=== PATIENT | male | born 1950 | race Caucasian/White ===

== ENCOUNTER 2019-04-22 10:13 | Inpatient (IN) | payer MEDICARE, OTHER, SELFPAY ==
[2019-04-15 10:02] VITALS: BMI 34.7
[2019-04-22] VITALS (21 sets, daily range): BP systolic 86–137; BP diastolic 49–73; PULSE 58–89; RESP 8–22; TEMP 36–37.1; O2SAT 91–100; BMI 33.8
--- NOTE | 2019-04-22 | DI.RAD.S_ITS ---
PROCEDURE: XR LUMBAR SPINE 2-3V INDICATIONS: L4-L5 TLIF TECHNIQUE: 2 views of the lumbar spine were acquired. COMPARISON: None. FINDINGS: Spot fluoroscopic intraoperative views demonstrating L4-L5 posterior spinal fixation hardware. Interbody cage graft. There is expected intraoperative alignment. IMPRESSION: Expected intraoperative alignment. Dictated by: Yazan Bolivar M.D. on 04/22/2019 at 16:06 Approved by: Yazan Bolivar M.D. on 04/22/2019 at 16:07
[2019-04-22] MEDS: LACTATED RINGERS 1,000 ML 42 ML IV ×2 (10:54→14:47)
--- NOTE | 2019-04-22 12:42 | PM.PREOP ---
Pre-operative Note Interval Note History & Physical reviewed/Exam performed by Physician: Yes Changes to H&P: No
[2019-04-22] MEDS: CEFAZOLIN 2 GM/100 ML FROZ.PIGGY IV ×2 (13:22→21:43)
--- NOTE | 2019-04-22 13:54 | SUR.OPER ---
Prone on spine table, head in foam head support, padded chest and pelvic supports, gel pad at knees, lower legs supported by pillows; nipples, genitalia and toes free of pressure, arms secured on foam padded arm boards at <90 degrees abduction. Tape over blanket at thigh secured to table.
[2019-04-22] MEDS: BUPIVACAINE LIPOSOME 266 MG/20 ML VIAL INJ (14:08)
[2019-04-22] MEDS: BUPIVACAINE 0.25% W/ EPI 30 ML VIAL INJ (14:08)
--- NOTE | 2019-04-22 16:01 | P.OP_ITS ---
Operative Date/Time/Diagnoses Date of procedure: 04/22/19 Time of procedure: 13:27 Pre-op diagnosis: 1. L3-4, L4-5 spinal stenosis 2. L4-5 spondylolisthesis Post-op diagnosis: same Procedure & Clinicians Procedure: 1. L4-5 Postero-lateral and posterior interbody fusion 2. L4-5 interbody cage placement. 3. L4-5 decompressive laminectomy with bilateral facetecomies 4. L4-5 Posterior non-segmental instrumentation 5. L3-4 hemilaminectomy 6. Merrick of bone marrow from iliac crest 7. Utilization of microsurgical technique and operating microscope Same procedure as scheduled: Yes Indications: Patient has been having chronic back pain and worsening lumbar radiculopathy. Patient failed multiple conservative management with worsening pain weakness and numbness in her lower extremity. Patient has been having difficulty performing activity of daily living. After discussing risks benefits of treatment options, patient elected proceed with surgery. Surgeon: Sadaf Anguiano [employer] Manager: Naty Urias'Brien Click Yes if Unassisted: No Anesthesia Type: General Operative Notes Closure Type: primary Specimen(s): none sent Prosthetic devices, grafts, tissues, transplants, or devices: Globus revolve screws, Rise cage Estimated Blood Loss (mL): 50 Blood products transfused: none Procedure in detail: Patient was seen in the preoperative area. Risks and benefits of the surgery was discussed with the patient. Informed consent was obtained from the patient and placed in the chart. Surgical site was marked. Patient was taken to the operative room. General anesthesia was administered. Prophylactic antibiotic was given to the patient less than 30 min before the incision was made. Patient was placed into a prone position on the Tobias table. Patient's back was then prepped and draped in the sterile fashion. Time- out was performed at this time. Using AP and lateral C-arm imaging the interval between L3-4 L4-5 was identified and marked on patient's back. A 2 inch incision 2 in from midline was made on the left side first. The fascia was incised in line with skin incision. Globus MARS retractors was placed inside the incision and docked onto the L4 lamina. Using microsurgical technique and operating microscope, a L4-5 laminectomy and L4-5 facetectomy was performed using a Kerrison rongeur. Patient was found to have severe neural foramen stenosis which required total facetectomy. The L4-5 level was grossly unstable in addition to the already present spondylolisthesis and required effusion at same time. The disc space at L4-5 was identified. And a total diskectomy was performed at L4-5 level. The endplates were decorticated using a rasp and shaver. The total diskectomy and decortication was performed at L4-5 level in order to to accomplish a L4-5 fusion. The local bone from the laminectomy and facetectomy was saved for local bone grafting. After the total diskectomy and decortication was completed, Bio4 bone graft material was combined with local bone that was harvested earlier. At this time, a separate skin is incision was made over the iliac crest. A Jamshidi needle was inserted into the iliac crest through a separate skin incision. 5 cc of bone marrow aspiration was obtained through the separate skin incision using a Jamshidi needle from the iliac crest. The bone marrow aspiration was combined with local bone and the Bio4 bone grafting material. The bone grafting material was placed into the L4-5 interbody space along with a expandable cage. The cage was expanded to its maximum height using the torque limiting screwdriver. At this time the MARS retractor was redirected over the L3 lamina. Using microsurgical technique and operating microscope, a L3-4 heminectomy was performed using the Kerrison rongeur. The ligamentum flavum was also resected at the side of the hemilaminectomy for further decompression of the epidural space. Patient was found have significant epidural stenosis with lateral recess stenosis due to the hypertrophied ligamentum flavum which was fully decompressed after the hemilaminectomy was completed. At this time a mirror image incision was made on the right side. The fascia was incised in line with the skin incision. Globus MARS retractor was inserted and docked onto the L4-5 posterolateral gutter. Using the power drill, posterior- lateral decortication was performed at L4-5 level until bleeding cortical bone was identified. The remaining bone grafting material was placed into the L4-5 posterior lateral gutter he order to accomplish posterolateral fusion at the L4- 5 level. Using the double C-arm technique, pedicle screws were placed into the L4 and L5 pedicles bilaterally. This was done by placing the Jamshidi needle into the pedicles, then placing the guidewires over the Jamshidi needle, and finally placing the cannulated screws over the guidewires bilaterally. After the pedicle screws were placed, 2 titanium rods was locked into the heads of the pedicle screws using locking caps and torque limiting screwdriver. Threaded reducers were used to reduce the spondylolisthesis at L4-5 level which was accomplished without any difficulty. After all the hardware was placed, and confirmed with AP and lateral C-arm imaging, the wound was then irrigated with sterile normal saline and packed with Ray-Chloe gauze for 3 min to accomplish hemostasis. After the gauze was removed the deep fascia was closed with #1 Vicryl suture. The subcutaneous layer was closed with 2-0 Vicryl. The skin was closed with skin melania. Patient tolerated the procedure well. There were no complications. Complications: none Post-operative Condition: stable Disposition: PACU Plan for aftercare: Admit to inpatient hospital
[2019-04-22] MEDS: fentaNYL 100 MCG/2 ML INJ IV ×2 (16:10→16:22)
[2019-04-22] MEDS: hydrOXYzine 50 MG/ML INJ 12.5 MG IM (16:37)
[2019-04-22] MEDS: HYDROMORPHONE 2 MG INJ IV ×6 (16:37→17:26)
--- NOTE | 2019-04-22 17:11 | SUR.PHASEI ---
ASSUMED CARE OF PT AT THIS TIME. BEDSIDE REPORT RECEIVED FROM SOFIYA FERGUSON. DRSG OBSERVED TO BE C/D/I. IV SITE CLEAR AND INFUSING WITHOUT DIFFICULTLY. PT ALERT AND TALKING TO RN AT BEDSIDE.
--- NOTE | 2019-04-22 18:06 | SUR.PHASEI ---
PT TRANSFERRED TO ACUTE CARE FLOOR IN STABLE CONDITION, VSS. PT GIRLFRIEND AT BEDSIDE. BEDSIDE REPORT GIVEN TO SOFIYA HOLDEN AT THAT TIME. DRSG OBSERVED TO BE C/D/I. TRANSFERRED CARE OF PT TO SOFIYA HOLDEN AT THAT TIME IN STABLE CONDITION, VSS.
[2019-04-22] MEDS: OXYCODONE IR 5 MG TABLET 10 MG PO ×2 (18:52→21:47)
[2019-04-22] MEDS: ACETAMINOPHEN 325 MG TABLET 650 MG PO (18:52)
[2019-04-22] MEDS: SODIUM CHLORIDE 0.9% 1,000 ML 100 ML IV (18:52)
[2019-04-22] MEDS: SIMVASTATIN 10 MG TABLET PO (21:44)
[2019-04-22] MEDS: GABAPENTIN 300 MG CAPSULE PO (21:44)
--- NOTE | 2019-04-22 22:49 | PC.NURSE ---
Admit note: Renan transfered from PACU to rm 212 at approx 1805, awake, Ox3 and situation. VS stable. Reported need to void, able to use urinal while side lying right side. Back drsg CDI, ice pack in place. 2L O2 sat 93-94%, on RA desats to 85-88% By 1851 started to report back pain increasing to 5 or 6, medicated with oxycodone & tylenol with good results, last checked he reported pain 2/, requesting to stay on pain med schedule to avoid breakthru pain. We have assisted him to reposition every 1-2 hours, pt calling appropriately when uncomfortable or needs assistance. Logrolling technique instructed, needs reminders as can be a bit impulsive. Good CMS, wearing bilateral foot SCD's. Voiding q30 min - 1 hour, reports frequency normal for him, denies diabetes & said they ruled that out. Takes own med to help urination and flow, does not have med here but called to bring in the morning so pharmacy can ID. Has eaten 1/2 sandwich & snacks, denies nausea, tolerating PO intake. Fall precautions in place, pt instructed to call nurse for any needs. Alarm active for safety.
--- NOTE | 2019-04-22 23:58 | PC.NURSE ---
Addendum entered by Karen Pressley R.N. 04/23/19 05:05: Remains on oxygen as when asleep O2 sat only at 93% with oxygen at 2L/min. States pain is only 1-2/10 this morning and declines offer of pain medication or ice pack. Assisted to use urinal. BP low but is asymptomatic; will continue with IV fluid at this time. Addendum entered by Karen Pressley R.N. 04/23/19 01:54: Awake and states pain is still 2-3/10 but requests and medicated with Tylenol and repositioned himself onto back. Original Note: Patient is alert and oriented. Breath sounds CTA. On oxygen at 2L/min per NC with sat of 93%; on continuous oximetry and will attempt to titrate oxygen during the night. HRR. Denies nausea. BT present but denies flatus as yet. Voiding per urinal and does have chronic frequency but denies dysuria, or urgency. Able to turn himself in bed. Dressing to back is CDI. States pain is tolerable at 2-3/10 and declines offer of ice pack. CMS is intact bilaterally. Wearing foot SCD's. Fall risk score is moderate; bed alarm is activated.
[2019-04-23] VITALS (9 sets, daily range): BP systolic 91–114; BP diastolic 49–65; PULSE 56–78; RESP 16–18; TEMP 36.8–37.2; O2SAT 93–99
[2019-04-23] MEDS: ACETAMINOPHEN 325 MG TABLET 650 MG PO ×3 (01:50→18:17)
[2019-04-23] MEDS: SODIUM CHLORIDE 0.9% 1,000 ML 100 ML IV (04:39)
[2019-04-23] MEDS: CEFAZOLIN 2 GM/100 ML FROZ.PIGGY IV (04:47)
--- NOTE | 2019-04-23 07:50 | PM.DS.1 ---
History of Present Illness History of Present Illness Chief complaint: [id number] Discharge Providers Provider Date of admission: 04/22/19 10:13 Consults: 04/22/19 18:28 Consult to Occupational Therapy Evaluate & Treat Comment: Physician Instructions: Evaluate and treat Consult to Physical Therapy Evaluate & Treat Comment: Physician Instructions: Evaluate and Treat Discharge provider: Naty Camacho PA-C Exam Vital Signs (past 8 hours): - 04/23/19 04:40 Temperature 98.2 F Pulse Rate 65 Respiratory Rate 16 Blood Pressure 95/49 L Pulse Oximetry 98 Oxygen Delivery Method Nasal Cannula Oxygen Flow Rate 2 Discharge Plan Discharge Plan Patient Disposition: Home Discharge Med Rec/Prescriptions Prescriptions: No Action ibuprofen 800 mg Tablet 800 mg PO TID PRN (Reason: Pain) RF: 0 diclofenac sodium 100 mg Tablet Extended Release 24 Hr 100 mg PO DAILY RF: 0 simvastatin 10 mg Tablet 10 mg PO BEDTIME RF: 0 acyclovir 400 mg Tablet 400 mg PO DAILY RF: 0 gabapentin 300 mg Capsule 300 mg PO BID RF: 0 cyclobenzaprine 5 mg Tablet 5 mg PO TID PRN (Reason: Pain) RF: 0 alfuzosin [Uroxatral] 10 mg Tablet Extended Release 24 Hr 20 mg PO BEDTIME RF: 0 Follow up/Referrals: Sadaf Anguiano MD [Physician] - Provider Discharge Instructions Cold/Heat Therapy: as needed Skin/Wound/Dressing Care Report to your healthcare provider any signs of infection, such as:: chills, fever and increased pain Visit Report/Discharge Packet Instructions: DI for Transforaminal Lumbar Interbody Fusion
[2019-04-23 08:55] LABS: Hematocrit 36.9 % (41-53); Hemoglobin 12.9 g/dL (13.5-17.5); Mean Corpuscular HGB Conc 34.8 % (30-36); Mean Corpuscular Volume 97.7 fL (80-100); Platelet Count 202 X10^3/uL (150-400); Red Blood Cell Count 3.78 X10^6/uL (4.5-5.9); Red Cell Distribution Width 13.9 % (11.6-14.8); White Blood Cell Count 12.4 X10^3/uL (4.5-11.0)
--- NOTE | 2019-04-23 10:06 | OT.IP.EVAL ---
Current Diagnoses Spondylolisthesis, lumbar region (04/22/19) Spinal stenosis, lumbar region with neurogenic claudication (04/22/19) Surgery Performed Operation Date: 04/22/19 12:15 Actual Procedures p L3-4 hemilaminectomy, L4-5 TLIF w/ posterior instrumentation(Not Applicable) - Sadaf Anguiano MD Past Medical History (Last Updated 04/15/19 @ 10:20 by Phylicia Smith, SOFIYA) BPH (benign prostatic hyperplasia) (Acute) History of deviated nasal septum (Acute ~2013) HLD (hyperlipidemia) (Acute) Incontinence of feces with fecal urgency (Acute) Sciatica (Acute) Urinary urgency (Acute) Surgical History (Last Updated 04/15/19 @ 10:20 by Phylicia Smith RN) H/O vasectomy (Acute) H/O wrist surgery (Acute) History of ankle surgery (Acute) History of arthroscopy of both knees (Acute) History of bilateral cataract extraction (Acute) Hx of foot surgery (Acute) Hx of hernia repair (Acute) Hx of tonsillectomy (Acute) Occupational Therapy Inpatient Evaluation/Re-Eval M1 PT/OT-IP Prior Functional Status Start: 04/23/19 12:22 Freq: NEEDED Status: Active Protocol: Document 04/23/19 10:06 [facility] (Rec: 04/23/19 12:44 [facility] [id number]) Medical Review Prior Functional Status Medical History Reviewed Yes Diet/Fluid Consistency Regular Communication Able to make needs known Mobility and Gait Pt was independent with all functional mobility Activities of Daily Living and IADL's Independent Prior Functional Level (Other details) Pt with high prior level of activity - dances (square, ballroom) 2-3x/week. Social History Household Members none Living Arrangements House Number of Floors (Floors) One Floor Number of Stairs To Enter/Railing? 2 DRE. Stairs are deep enough to allow FWW Home Environment Standard Height Toilet,Tub/ Shower Home Equipment Front Wheel Walker,Four Wheel Walker,Quad Cane,Straight Cane ,Bedside Commode,Shower Seat with Backrest,Grab Bars In Shower Employment Status Self-Employed Additional Social History Comment Pt lives alone but his girlfriend plans to live with him for the next month to provide assistance. She is retired and will be available 02/01. 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 At discharge, pt will spend a few days at his girlfriend's house. That house has 2 DRE with right railing. The stairs are wide enough that pt can use the railing and a quad cane one the left side. The home is all one level. M2 OT-IP Current Condition Start: 04/23/19 12:22 Freq: Status: Active Protocol: Document 04/23/19 10:06 [facility] (Rec: 04/23/19 12:44 [facility] [id number]) Occupational Therapy Current Condition Current Condition Evaluation Date 04/23/19 Treatment Diagnosis S/P L3-4 hemilami, L4-5 TLIF with post instruct. Diagnosis Onset Date 04/22/19 Post Operative Precautions Lumbar Precautions Log Roll,No Twisting,Limit Bending,Lifting Restriction of 10 lbs,Gait Belt above Incisional Area Weight Bearing Status Weight Bearing Status Weight Bear as Tolerated M3 OT- IP Subjective and Pain Start: 04/23/19 12:22 Freq: Status: Active Protocol: Document 04/23/19 10:06 [facility] (Rec: 04/23/19 12:44 [facility] [id number]) OT- Subjective Occupational Therapy Visit Type Type Initial Evaluation Visit Start Time 10:06 Visit Stop Time 10:51 Total Visit Minutes 45 Occupational Therapy Visit Comments Patient Comments Pt willing to get up. Patient/Caregiver Goals To go home when medically ready. OT Pain Assessment Pain When Pain Assessed During Mobility Pain Present Pain Present Pain Reported Location lower back Intensity 3 Scale Used Numeric (1 - 10) M4 OT- IP ADL's Start: 04/23/19 12:22 Freq: Status: Active Protocol: Document 04/23/19 10:06 [facility] (Rec: 04/23/19 12:44 [facility] [id number]) OT ADL-Grooming Comments OT Grooming Comments Pt states already completed. Educated to bend at hips or just spit into a cup for brushing his teeth. OT ADL-Dressing General Eval Lower Body Dressing Ability Moderate Assistance Areas Needing Assistance Socks Comments OT Dressing Comments Pt prior crosses his legs over to do LB dressing needs, at this time causes too much discomfort and therefore educated and had pt try to use mainspring strip gauger and sock aid to zac/ doff socks and able to do with good safety and understanding . Sock aid issued. OT ADL-Toileting Comments OT Toileting Comments Pt using urinal now. Pt states current master bathroom is being remodeled and other bathroom 50 ft away. Pt did clarify has a BSC if needed or could use a urinal at night. Educated may be easier to stand for pericare needs. OT ADL-Bathing Comments OT Bathing Comments To completed. M5 OT- IP IADL's Start: 04/23/19 12:22 Freq: Status: Active Protocol: Document 04/23/19 10:06 [facility] (Rec: 04/23/19 12:44 [facility] [id number]) OT-Instrumental Activities of Daily Living Home Safety Awareness Awareness of Need for Assistance at Home Good Awareness Ability to Problem Solve Emergency Able to Problem Solve Situations Medication Management Medication Management No Deficits Identified Money Management Money Management No Deficits Identified Meal Preparation Meal Preparation Caregiver Provides Assist Polymerization Oven Operator Polymerization Oven Operator Caregiver Provides Assist M6 OT- IP Functional Cognition Start: 04/23/19 12:22 Freq: Status: Active Protocol: Document 04/23/19 10:06 [facility] (Rec: 04/23/19 12:44 [facility] [id number]) Cognitive Factors Limiting Selfcare Function Cognitive Ability Level of Alertness Alert Patient Orientation Name,Age,Birthday,Month,Date, Year,Day of Week,Place, Situation Attention Span Ability Capable of Focused Attention, Capable of Sustained Attention Ability to Follow Commands Able to Follow Multi-Step Commands Safety Awareness Decreased Ability to Apply Precautions Cognitive Comments Cognitive Assessment Comments Pt able to follow 3 steps commands and appears to be intact cognitively at this time. Pt able to state all back precautions. Pt needing occasional vc to incorporate back precautions for mobility needs. OT- Vision and Hearing OT- Hearing Assessment OT- Hearing Assessment WFL OT- Vision Assessment Visual Acuity WFL Visual Attentiveness WFL M7 OT- IP Mobility and Balance Start: 04/23/19 12:22 Freq: Status: Active Protocol: Document 04/23/19 10:06 [facility] (Rec: 04/23/19 12:44 [facility] [id number]) OT- Bed Mobility Assessment Rolling Type of Rolling Roll to Left Level of Assistance Standby Assistance Supine to Sit Supine to Sit Assist Minimal Assistance Scooting Scooting to Edge of Bed Standby Assistance OT-Transfer Assessment Sit to and From Stand Sit to and from Stand Minimal Assistance,Moderate Assistance Transfers Transfer Ability Minimal Assistance Technique Transfer Destination Bed,Chair Transfer Technique Stand Step Pivot Devices Transfer Assistive Devices Gait Belt,Front Wheeled Walker Comments Mobility Comments YASH to help push up to get trunk upright. Pt needing MODA to stand as having trouble to straighten his legs out as having pain and educated to be mindful of the pain and not stop 1/2 way while trying to come to stand. Pt second time improved to YASH to stand. [facility] Y[facility]. Pt taken off O2 and after transfer O2 on RA 99% and nursing notified and pt no longer needing to use O2 at this time per nursing. OT- Balance Assessment Sitting Balance and Reactions Static Sitting Balance Ability Normal Dynamic Sitting Balance Ability Normal Standing Balance and Reactions Static Standing Balance Ability Fair M8 OT- IP Objective Assessments Start: 04/23/19 12:22 Freq: Status: Active Protocol: Document 04/23/19 10:06 [facility] (Rec: 04/23/19 12:44 [facility] [id number]) OT Gross Range of Motion Upper Extremity Range of Motion Assessment Within Functional Limits OT Strength Upper Extremity Strength Assessment Within Functional Limits OT-Muscle Tone Assessment Muscle Tone WNL Yes M9 OT- IP Assessment and Plan Start: 04/23/19 12:22 Freq: Status: Active Protocol: Document 04/23/19 10:06 [facility] (Rec: 04/23/19 12:44 [facility] [id number]) OT Summary Assessment and Plan Potential Rehabilitation Potential Excellent Analytic Complexity at Evaluation Low Summary OT Impairments Pain,Functional Mobility, Grooming,Dressing,Toileting, Bathing,Toilet Transfers, Shower Transfers Progress Towards Goals Progressing Toward Goals Assessment Summary Pt low complexity and main barrier are steps, pain, and now needing assistance for mobility and ADl needs. Pt doing well and continue to work with OT while here for incorporation of back precautions for ADl and functional mobility needs. Pt looking to go home with girlfriend to assist when medically stable. Goals Grooming Goal Independent Dressing Goal Independent Toileting Goal Independent Bathing Goal Standby Assistance Toilet Transfer Goal Independent Shower Transfer Goal Contact Guard Assistance Patient/Caregiver Education Goal Demonstrate Post-Op Precautions,Caregiver Independent Assisting Patient OT-Other Goals Grooming goal while standing. Days to Meet Goals 5 Frequency of Treatment Frequency Of Treatment Once a Day Treatment Plan OT Treatment Plan ADL Training,Functional Mobility,Patient/Family Education,Discharge Planning Other Treatment Recommendations and Next Incorporation of back Treatment Focus precautions for ADl needs, shower Discharge Recommendations OT Discharge Recommendations Home with Assistance
[2019-04-23] MEDS: ACYCLOVIR 400 MG TABLET PO (10:29)
[2019-04-23] MEDS: GABAPENTIN 300 MG CAPSULE PO ×2 (10:30→20:21)
[2019-04-23] MEDS: HYDROCODONE/ACET 5/325 TABLET 2 TAB PO ×3 (10:30→23:35)
--- NOTE | 2019-04-23 10:55 | P.PN_ITS ---
Subjective Subjective Date Patient Seen: 04/23/19 Time Patient Seen: 10:55 Interval history: POD #1 s/p L4-[address] Anguiano. Patient's pain was well- controlled last night with oxycodone. He notes significant relief of right leg symptoms and surgery. He is requesting something for pain that is less strength than oxycodone. Denies chest pain or shortness breath. He did require oxygen last night. On room air this morning. Patient is voiding without difficulty or assistance. Exam Vital Signs (past 8 hours): - 04/23/19 04:40 04/23/19 07:54 Temperature 98.2 F 98.3 F Pulse Rate 65 61 Respiratory Rate 16 18 Blood Pressure 95/49 L 91/50 L Pulse Oximetry 98 98 Oxygen Delivery Method Nasal Cannula Oxygen Flow Rate 2 Narrative Exam Narrative: Patient sitting bedside chair in no acute distress. Alert orient x3. Calves are soft, depressible, nontender bilaterally. Pulses are symmetrical. Sensation intact to light touch in her bilateral lower extremities. He is able to actively dorsiflex plantar flex. Dressing on back is CDI. Objective Labs Result Diagrams: 04/23/19 08:15 Labs: Laboratory Results - last 24 hr 04/23/19 08:15 WBC 12.4 H RBC 3.78 L Hgb 12.9 L Hct 36.9 L MCV 97.7 MCH 34.0 MCHC 34.8 RDW 13.9 Plt Count 202 Assessment & Plan Post-op Postoperative Procedures: Procedures Operation Date: 04/22/19 12:15 Actual Procedures Side Surgeon p L3-4 hemilaminectomy, L4-5 TLIF w/ posterior instrumentation Not Applicable Sadaf Anguiano MD Patient will continue work with physical therapy today. No excessive bending, lifting, or twisting. Patient can take [place] 5/325 for pain control. Oxycodone for significant pain. This patient is mobilizing safely with adequate pain control he will be able to discharge home likely tomorrow.
--- NOTE | 2019-04-23 11:02 | PC.NURSE ---
Shift summary: Alert and oriented X3. Reports low back pain 09/19. Dressing to mid-low back C/D/I. Medicated with Vicodin and Tylenol per -aug. Denies paresthesias. Voiding without issue. Up to chair with OT. Reported feeling a bit lightheaded when he stood, vitals stable, resolved once sitting. IV fluids left running for now, encouraged PO fluid intake. Lungs CTA, HRR. Able to make needs known and calls appropriately. Light and belongings within reach, chair alarm on.
--- NOTE | 2019-04-23 12:19 | PT.IIE ---
Current Diagnoses Spondylolisthesis, lumbar region (04/22/19) Spinal stenosis, lumbar region with neurogenic claudication (04/22/19) Surgery Performed Operation Date: 04/22/19 12:15 Actual Procedures p L3-4 hemilaminectomy, L4-5 TLIF w/ posterior instrumentation(Not Applicable) - Sadaf Anguiano MD Surgical History (Last Updated 04/15/19 @ 10:20 by Phylicia Smith RN) H/O vasectomy (Acute) H/O wrist surgery (Acute) History of ankle surgery (Acute) History of arthroscopy of both knees (Acute) History of bilateral cataract extraction (Acute) Hx of foot surgery (Acute) Hx of hernia repair (Acute) Hx of tonsillectomy (Acute) Medical History (Last Updated 04/15/19 @ 10:20 by Phylicia Smith RN) BPH (benign prostatic hyperplasia) (Acute) History of deviated nasal septum (Acute ~2013) HLD (hyperlipidemia) (Acute) Incontinence of feces with fecal urgency (Acute) Sciatica (Acute) Urinary urgency (Acute) Physical Therapy Inpatient Evaluation/Re-Eval M1 PT/OT-IP Prior Functional Status Start: 04/23/19 10:16 Freq: NEEDED Status: Active Protocol: Document 04/23/19 11:59 AW (Rec: 04/23/19 12:19 AW [id number]) Medical Review Prior Functional Status Medical History Reviewed Yes Diet/Fluid Consistency Regular Communication Able to make needs known Mobility and Gait Pt was independent with all functional mobility Activities of Daily Living and IADL's Independent Prior Functional Level (Other details) Pt with high prior level of activity - dances (square, ballroom) 2-3x/week. Social History Household Members none Living Arrangements House Number of Floors (Floors) One Floor Number of Stairs To Enter/Railing? 2 DRE. Stairs are deep enough to allow FWW Home Environment Standard Height Toilet,Tub/ Shower Home Equipment Front Wheel Walker,Four Wheel Walker,Quad Cane,Straight Cane ,Bedside Commode,Shower Seat with Backrest,Grab Bars In Shower Employment Status Self-Employed Additional Social History Comment Pt lives alone but his girlfriend plans to live with him for the next month to provide assistance. She is retired and will be available 02/01. 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 At discharge, pt will spend a few days at his girlfriend's house. That house has 2 DRE with right railing. The stairs are wide enough that pt can use the railing and a quad cane one the left side. The home is all one level. M2 PT-IP Current Condition Start: 04/23/19 10:16 Freq: NEEDED Status: Active Protocol: Document 04/23/19 11:59 AW (Rec: 04/23/19 12:19 AW [id number]) Physical Therapy Current Condition Current Condition Evaluation Date 04/23/19 Treatment Diagnosis L3-4 L4-5 TLIF, impaired mobility Precautions Lumbar Precautions Log Roll,No Twisting,Limit Bending,Lifting Restriction of 10 lbs,Gait Belt above Incisional Area Weight Bearing Status Weight Bearing Status Full Weight Bearing M3 PT-IP Subjective Start: 04/23/19 10:16 Freq: NEEDED Status: Active Protocol: Document 04/23/19 11:59 AW (Rec: 04/23/19 12:19 AW [id number]) Subjective Physical Therapy Visit Type Type Initial Evaluation Visit Start Time 11:00 Visit Stop Time 11:20 Total Visit Minutes 20 Number of DISC PAD GRINDER Visits 0 Physical Therapy Visit Comments Patient Comments Pt willing to mobilize with PT Patient Goals Pt hopes to discharge to his girlfriend's house. She will be available and able to assist. Therapy Pain Assessment Pain When Pain Assessed During Mobility Pain Present Pain Present Pain Reported Location lower back Intensity 3 Scale Used 3/10 at rest; unchanged with mobility Pain Management Techniques Apply Cold,Re-positioning, Timing of Activity with Medications M4 PT-IP Mobility and Gait Start: 04/23/19 10:16 Freq: NEEDED Status: Active Protocol: Document 04/23/19 11:59 AW (Rec: 04/23/19 12:19 AW [id number]) PT-Transfer Assessment Sit to and From Stand Sit to and from Stand 1 Person Assistance,Use of Upper Extremities Equipment Transfer Assistive Device Gait Belt,Front Wheeled Walker Orthotic/Prosthetic Devices or Brace: No Transfers Transfer Destination Chair Transfer Technique pt ambulated using FWW Transfer Ability Level of Assist Minimal Assistance,1 Person Assistance,Use of Upper Extremities Comments Mobility Comments Pt found sitting up in chair after OT eval, declining bed mobility. He required min assist x 1 for sit<>stand using FWW. Gait Assessment Gait Gait Assistance Required: Contact Guard Assist Distance (Feet) 120 Able to Maintain Weight Bearing Status Yes During Gait Assistive Devices Assistive Device Gait Belt,Front Wheeled Walker Orthotic/Prosthetic Devices or Brace: No Gait Deviations General Gait Pattern Antalgic,Decreased Stride Length,Decreased Feet Clearance,Flexed Trunk Factors Limiting Gait Function Factors Limiting Gait Function Decreased Activity Tolerance, Pain Comments Gait Comments Pt ambulated 120 feet using FWW CGA, requiring verbal cues to avoid twisting, looking over his shoulder. Stair Climbing Assessment Evaluation Level of Assist On Stairs Standby Assistance Devices Stair Climbing Assistive Devices Left Railing,Right Railing Technique/Endurance Stair Climbing Direction Ascend and Descend Stair Climbing Technique Step to Step Number of Steps Climbed 3 Query Text: Stair Climbing Set # Repetitions (reps) 2 Comments Stair Climbing Comments Pt required no more than SBA for stair navigation using both rails. PT-Balance Assessment Sitting Balance and Reactions Static Sitting Balance Ability Normal Dynamic Sitting Balance Ability Normal Standing Balance and Reactions Static Standing Balance Ability Good Dynamic Standing Balance Ability Good Device Used FWW M5 PT-IP Objective Assessments Start: 04/23/19 10:16 Freq: NEEDED Status: Active Protocol: Document 04/23/19 11:59 AW (Rec: 04/23/19 12:19 AW [id number]) Orientation Orientation/Cognition Level of Alertness Alert Orientation Name,Day of Week,Place, Situation Language Function Ability No Deficits Noted Safety Awareness Understands Safety Issues Memory Description No Deficits Noted Gross Range of Motion Upper Extremity ROM Assessment Within Functional Limits Lower Extremity ROM Assessment Within Functional Limits Strength Upper Extremity Strength Assessment Within Functional Limits Lower Extremity Strength Assessment Within Functional Limits Comments Strength Comments BUE and BLE grossly 5/5 Coordination Assessment Gross Coordination Gross Coordination WNL Sensation Assessment Sensation Gross Sensation WNL M6 PT-IP Treatment Start: 04/23/19 10:16 Freq: NEEDED Status: Active Protocol: Document 04/23/19 11:59 AW (Rec: 04/23/19 12:19 AW [id number]) Physical Therapy Treatment Education Education Provided Precautions,Weight Bearing Status,Post-Op Packet,Safety Other Treatments Other Treatment Performed Reviewed PT plan of care, spinal precautions, weightbearing status, safe use of FWW, and stair navigation. M7 PT-IP Assessment and Plan Start: 04/23/19 10:16 Freq: NEEDED Status: Active Protocol: Document 04/23/19 11:59 AW (Rec: 04/23/19 12:19 AW [id number]) PT Summary Assessment and Plan Potential Rehabilitation Potential Excellent Status of Condition at Evaluation Evolving Summary Impairments Pain,Bed Mobility,Transfers, Gait,Activity Tolerance Assessment Summary Pt is an active 68 yo man seen for PT eval on POD1 following TLIF. PLOF: Pt was independent in all regards. CLOF: Pt required min assist for sit to stand and SBA for all other mobilities including stairs. Anticipate pt meeting functional goals of this plan of care with safe discharge to home or girlfriend's home with SO assist and outpatient PT. Goals Bed Mobility Goal Independent Transfer Goal Standby Assistance,Front Wheeled Walker Gait Goal Independent,Front Wheel Walker Gait Distance 300 Other Goals up/down 2 steps with R railing and quad cane left side SBA Days to Meet Goals 1 Frequency of Treatment Frequency Of Treatment Twice a Day Treatment Plan Physical Therapy Treatment Plan Bed Mobility Training,Transfer Training,Gait Training, Therapeutic Exercise,Balance Retraining,Post Op Education, Discharge Planning,Hot or Cold Pack,Neuromuscular Re-ed, Coordination Retraining,Manual Therapy Other Recommendations and Next Treatment stair training with quad cane Focus Recommendations To Nursing Amount of Assist Needed Standby Assistance,1 Person Assist Discharge Recommendations PT Discharge Recommendations Home with Assistance, Outpatient PT
--- NOTE | 2019-04-23 13:30 | PT.IPTN ---
Current Diagnoses Spondylolisthesis, lumbar region (04/22/19) Spinal stenosis, lumbar region with neurogenic claudication (04/22/19) Surgery Performed Operation Date: 04/22/19 12:15 Actual Procedures p L3-4 hemilaminectomy, L4-5 TLIF w/ posterior instrumentation(Not Applicable) - Sadaf Anguiano MD Physical Therapy Treatment Note M2 PT-IP Current Condition Start: 04/23/19 10:16 Freq: NEEDED Status: Active Protocol: Document 04/23/19 11:59 AW (Rec: 04/23/19 12:19 AW [id number]) Physical Therapy Current Condition Current Condition Evaluation Date 04/23/19 Treatment Diagnosis L3-4 L4-5 TLIF, impaired mobility Precautions Lumbar Precautions Log Roll,No Twisting,Limit Bending,Lifting Restriction of 10 lbs,Gait Belt above Incisional Area Weight Bearing Status Weight Bearing Status Full Weight Bearing M3 PT-IP Subjective Start: 04/23/19 10:16 Freq: NEEDED Status: Active Protocol: Document 04/23/19 13:04 CLB (Rec: 04/23/19 13:43 CLB [email or web address]) Subjective Physical Therapy Visit Type Type Treatment Note Visit Start Time 13:04 Visit Stop Time 13:30 Total Visit Minutes 26 Number of PARTS INTERPRETER Visits 1 Physical Therapy Visit Comments Patient Comments Pt willing to mobilize with PT Therapy Pain Assessment Pain When Pain Assessed During Mobility Pain Present Pain Present Pain Reported Location lower back Intensity 3 Scale Used Numeric (1 - 10) Pain Management Techniques Apply Cold,Re-positioning, Timing of Activity with Medications M4 PT-IP Mobility and Gait Start: 04/23/19 10:16 Freq: NEEDED Status: Active Protocol: Document 04/23/19 13:04 CLB (Rec: 04/23/19 13:43 CLB [id number]) PT-Transfer Assessment Sit to and From Stand Sit to and from Stand Contact Guard Assistance Equipment Transfer Assistive Device Gait Belt,Front Wheeled Walker Orthotic/Prosthetic Devices or Brace: No Transfers Transfer Destination Bed,Chair Transfer Technique pt ambulated using FWW Transfer Ability Level of Assist Contact Guard Assistance,1 Person Assistance,Use of Upper Extremities Comments Mobility Comments Pt in chair willing to ambulate. After ambulation pt performed reverse log roll with cues for sequencing and then log roll out of bed SBA. Pt required cues for hand placement for safety when standing from the bed. Left pt in chair with all needs within reach, chair alarm on and girlfriend present. Gait Assessment Gait Gait Assistance Required: Contact Guard Assist Distance (Feet) 400 Able to Maintain Weight Bearing Status Yes During Gait Assistive Devices Assistive Device Gait Belt,Front Wheeled Walker Orthotic/Prosthetic Devices or Brace: No Gait Deviations General Gait Pattern Antalgic,Decreased Stride Length,Decreased Feet Clearance,Flexed Trunk Factors Limiting Gait Function Factors Limiting Gait Function Decreased Activity Tolerance, Pain Comments Gait Comments Pt ambulated in parekh and trialed stairs with pain 3/10. Stair Climbing Assessment Evaluation Level of Assist On Stairs Standby Assistance Devices Stair Climbing Assistive Devices Small Base Quad Cane,Right Railing Technique/Endurance Stair Climbing Direction Ascend and Descend Stair Climbing Technique Step to Step Number of Steps Climbed 3 Stair Climbing Set # Repetitions (reps) 1 M5 PT-IP Objective Assessments Start: 04/23/19 10:16 Freq: NEEDED Status: Active Protocol: Document 04/23/19 11:59 AW (Rec: 04/23/19 12:19 AW [id number]) Orientation Orientation/Cognition Level of Alertness Alert Orientation Name,Day of Week,Place, Situation Language Function Ability No Deficits Noted Safety Awareness Understands Safety Issues Memory Description No Deficits Noted Gross Range of Motion Upper Extremity ROM Assessment Within Functional Limits Lower Extremity ROM Assessment Within Functional Limits Strength Upper Extremity Strength Assessment Within Functional Limits Lower Extremity Strength Assessment Within Functional Limits Comments Strength Comments BUE and BLE grossly 5/5 Coordination Assessment Gross Coordination Gross Coordination WNL Sensation Assessment Sensation Gross Sensation WNL M6 PT-IP Treatment Start: 04/23/19 10:16 Freq: NEEDED Status: Active Protocol: Document 04/23/19 11:59 AW (Rec: 04/23/19 12:19 AW [id number]) Physical Therapy Treatment Education Education Provided Precautions,Weight Bearing Status,Post-Op Packet,Safety Other Treatments Other Treatment Performed Reviewed PT plan of care, spinal precautions, weightbearing status, safe use of FWW, and stair navigation. M7 PT-IP Assessment and Plan Start: 04/23/19 10:16 Freq: NEEDED Status: Active Protocol: Document 04/23/19 13:04 CLB (Rec: 04/23/19 13:43 CLB [email or web address]) PT Summary Assessment and Plan Potential Rehabilitation Potential Excellent Status of Condition at Evaluation Evolving Summary Impairments Pain,Bed Mobility,Transfers, Gait,Activity Tolerance Assessment Summary Pt increased ambulation to ~ 400ft, climbed stairs and performed log roll in and out of bed SBA. Pt has good pain controll, is steady during gait with good safety awareness. Goals Bed Mobility Goal Independent Transfer Goal Standby Assistance,Front Wheeled Walker Gait Goal Independent,Front Wheel Walker Gait Distance 300 Other Goals up/down 2 steps with R railing and quad cane left side SBA Days to Meet Goals 1 Frequency of Treatment Frequency Of Treatment Twice a Day Treatment Plan Physical Therapy Treatment Plan Bed Mobility Training,Transfer Training,Gait Training, Therapeutic Exercise,Balance Retraining,Post Op Education, Discharge Planning,Hot or Cold Pack,Neuromuscular Re-ed, Coordination Retraining,Manual Therapy Other Recommendations and Next Treatment ambulation, bed mobility Focus Recommendations To Nursing Amount of Assist Needed Standby Assistance,1 Person Assist Discharge Recommendations PT Discharge Recommendations Home with Assistance, Outpatient PT
--- NOTE | 2019-04-23 14:16 | CM.DANOTE ---
Discharge Planning/Care Management CM Discharge Assessment Start: 04/23/19 14:14 Freq: Status: Active Protocol: Document 04/23/19 14:15 ITV (Rec: 04/23/19 14:16 ITV [id number]) Discharge Planning Assessment Advance Directives? Yes History Provided By Medical Record Prior Living Arrangements House Household Members none Whiteboard Updated in Patient Room with Yes name and ext. # of Music Coordinator Review Status In Process Pre-Anesthesia Assessment Start: 04/15/19 10:02 Freq: Status: Complete Protocol: Document 04/15/19 10:02 CAB (Rec: 04/15/19 10:39 CAB [id number]) Pre-Anesthesia Assessment Patient Information Reviewed Via Phone Assessment Assessment Completed With Patient Diagnostic Results BMP/CMP,CBC,EKG Comment Labs/EKG scanned into record Primary Care Provider taa Seen Specialist in Last 12 Months Yes Specialist Seen [employer] Flatbed Truck Driver,Orthopedist Primary Language Lao Flying Instructor Required No Height 170.18 cm Weight 100.698 kg Body Mass Index (BMI) 34.7 Hearing Ability Normal Visual Impairment No Limitations Visual Assist None Dentition Type Teeth, Natural Present Barriers to Learning None Other Aids No Hx Anesthesia Reactions Yes: Urinary retention, constipation next day after sinus surgery Hx Family Anesthesia Reaction No Hx Malignant Hyperthermia No Hx Blood Transfusions No: Pt unsure Anesthesia Review Requested No alcohol intake current alcohol intake frequency a few times a week Smoking Status Former smoker Tobacco type cigarettes,pipe,cigars how long ago did patient quit smoking Quit 1984 Substance Use Type does not use Pain Present Pain Reported Musculoskeletal Symptoms Abnormal Gait,Back Pain, Difficulty Walking,Muscle Spasms,Numbness,Radiating Pain into Limb History of Falling (Recent or History of No ) Patient is completely paralyzed or No completely immobile Mental Status Oriented to own ability Is patient on oxygen? No Does patient have CARRION/SOB No Hx Sleep Apnea No Currently Taking a Beta Jacky No Can You Climb a Flight of Stairs Without Yes SOB Hx Chest Pain No Hx SOB No Hx Syncope or Dizziness No Anti-Coagulant Therapy No Has a Tinner Helper No Cardiac Testing No Hx Pacemaker/ICD No Pacemaker Rep Required? No Cardiac Clearance Received Not Applicable Comment Very active Diet Type At Home Regular dysphagia No Bladder Pattern Frequency,Incontinent, Stress, Urgency Urinary Catheter Present No Hx Urinary Self Catheterization No Diabetes No Presence of External or Internal Medical Yes: left wrist hardware Devices Have you traveled outside the [place] Yes: [place] in the last 30 days? Marital Status , Lives With none Prior Living Arrangements House Number of Floors (Floors) One Floor Support System Significant Other Does the Patient Have Assistance After Yes Surgery Patient Discharge Plan Description Return Home Comment S.O. will stay with pt to assist with care Feels Safe in Current Environment Yes Been Physically Hurt or Threatened By a No Person in Current Environment Do you have thoughts of harming yourself None or others? Are you currently considering suicide? No Do you have a plan to hurt yourself or No Plan others? Do You Have Any Spiritual Beliefs That No May Affect Your HC Choices? Do You Have Any Cultural Practices That No May Affect Your HC Choices? Comment Jew Who Can We Speak to About Patient's Care Family, friends Identifying Code for Release of Patient Declines to issue Information Health Care Proxy/Next of Kin Holly Gamez (step daughter) Health Care Proxy Emergency Contact Name Smiley (S.O.) Emergency Contact Advance Directives? Yes: Not current Power of Senior Statistical Programmer Yes Power of Senior Statistical Programmer Name Holly Gamez (step daughter) Power of Senior Statistical Programmer PAC Instructions Durable medical equipment, Medications to take/avoid, Nasal antibiotic,No ETOH/ petroleum product on skin DOS, NPO,Post-op transportation,Pre -surgical wash,Sturdy shoes/ comfortable clothes,Do not bring valuables and remove jewelry
--- NOTE | 2019-04-23 14:17 | CM.DANOTE ---
Addendum entered by Colleen Storey LPN 04/23/19 14:34: Met now with pt and Smiley. Introduced self and role. Pt confirms his plan for home when stable for same but pt does say I'm still in an awful lot of pain. P: at this point will be home with Smiley's help but unclear if this will be tomorrow or the next day. Original Note: Discharge Planning/Care Management DCP: assessment: case received and discussed in Team Rounds. Pt is a 68 year old male who admitted to care of surgeon: Dr. Anguiano: planned spinal surgery. Payer: Medicare and [employer]. Pt lives alone and has a [employer] business. He has arranged for his girlfriend Smiley (retired and able to stay 02/01) to stay with him and help him for a month. His daughter Holly will be managing the business affairs while he recovers. Ortho CHANNING saw pt today and notes d/c to home tomorrow is likely if pt continues to do well. P: check in with pt and follow prn. CM Discharge Assessment Start: 04/23/19 14:14 Freq: Status: Active Protocol: Document 04/23/19 14:15 ITV (Rec: 04/23/19 14:16 ITV [id number]) Discharge Planning Assessment Advance Directives? Yes History Provided By Medical Record Prior Living Arrangements House Household Members none Whiteboard Updated in Patient Room with Yes name and ext. # of Chimney Mechanic Review Status In Process Pre-Anesthesia Assessment Start: 04/15/19 10:02 Freq: Status: Complete Protocol: Document 04/15/19 10:02 CAB (Rec: 04/15/19 10:39 CAB [id number]) Pre-Anesthesia Assessment Patient Information Reviewed Via Phone Assessment Assessment Completed With Patient Diagnostic Results BMP/CMP,CBC,EKG Comment Labs/EKG scanned into record Primary Care Provider taagen Seen Specialist in Last 12 Months Yes Specialist Seen Coal Wheeler,Orthopedist Primary Language German Sandblast Operator Required No Height 170.18 cm Weight 100.698 kg Body Mass Index (BMI) 34.7 Hearing Ability Normal Visual Impairment No Limitations Visual Assist None Dentition Type Teeth, Natural Present Barriers to Learning None Other Aids No Hx Anesthesia Reactions Yes: Urinary retention, constipation next day after sinus surgery Hx Family Anesthesia Reaction No Hx Malignant Hyperthermia No Hx Blood Transfusions No: Pt unsure Anesthesia Review Requested No alcohol intake current alcohol intake frequency a few times a week Smoking Status Former smoker Tobacco type cigarettes,pipe,cigars how long ago did patient quit smoking Quit 1984 Substance Use Type does not use Pain Present Pain Reported Musculoskeletal Symptoms Abnormal Gait,Back Pain, Difficulty Walking,Muscle Spasms,Numbness,Radiating Pain into Limb History of Falling (Recent or History of No ) Patient is completely paralyzed or No completely immobile Mental Status Oriented to own ability Is patient on oxygen? No Does patient have CARRION/SOB No Hx Sleep Apnea No Currently Taking a Beta Jacky No Can You Climb a Flight of Stairs Without Yes SOB Hx Chest Pain No Hx SOB No Hx Syncope or Dizziness No Anti-Coagulant Therapy No Has a Assembler Type Bar And Segment No Cardiac Testing No Hx Pacemaker/ICD No Pacemaker Rep Required? No Cardiac Clearance Received Not Applicable Comment Very active Diet Type At Home Regular dysphagia No Bladder Pattern Frequency,Incontinent, Stress, Urgency Urinary Catheter Present No Hx Urinary Self Catheterization No Diabetes No Presence of External or Internal Medical Yes: left wrist hardware Devices Have you traveled outside the [place] Yes: [facility] in the last 30 days? Marital Status , Lives With none Prior Living Arrangements House Number of Floors (Floors) One Floor Support System Significant Other Does the Patient Have Assistance After Yes Surgery Patient Discharge Plan Description Return Home Comment S.O. will stay with pt to assist with care Feels Safe in Current Environment Yes Been Physically Hurt or Threatened By a No Person in Current Environment Do you have thoughts of harming yourself None or others? Are you currently considering suicide? No Do you have a plan to hurt yourself or No Plan others? Do You Have Any Spiritual Beliefs That No May Affect Your HC Choices? Do You Have Any Cultural Practices That No May Affect Your HC Choices? Comment Evelio Who Can We Speak to About Patient's Care Family, friends Identifying Code for Release of Patient Declines to issue Information Health Care Proxy/Next of Kin Holly Gamez (step daughter) Health Care Proxy Emergency Contact Name Smiley (S.O.) Emergency Contact Advance Directives? Yes: Not current Power of Laboratory Sampler Yes Power of Laboratory Sampler Name Holly Gamez (step daughter) Power of Laboratory Sampler PAC Instructions Durable medical equipment, Medications to take/avoid, Nasal antibiotic,No ETOH/ petroleum product on skin DOS, NPO,Post-op transportation,Pre -surgical wash,Sturdy shoes/ comfortable clothes,Do not bring valuables and remove jewelry
[2019-04-23] MEDS: hydrOXYzine pamoate 25 MG CAPSULE PO (18:17)
[2019-04-23] MEDS: SIMVASTATIN 10 MG TABLET PO (20:21)
--- NOTE | 2019-04-23 23:29 | PC.NURSE ---
Evening note: Renan reports pain managed by Vistaril and Tylenol paulo, declined hydrocodone, rates pain 2 or 3 on pain scale. Ox3 and situation. VS stable. IV saline locked around 1600. Tolerating PO's, voiding with no reported difficulty. Paulo when Student Nurse giving patient's 2100 meds, he told her he already took his own alfuzosin, saying my gave it to me before she left. Apparently did not understand that we needed to send his own med to pharmacy for ID before we could then administer this medication.
[2019-04-24 04:50] VITALS: BP 105/56; PULSE 66; RESP 16; TEMP 36.9; O2SAT 93
[2019-04-24] MEDS: OXYCODONE IR 5 MG TABLET 10 MG PO ×3 (05:06→11:44)
[2019-04-24] MEDS: hydrOXYzine pamoate 25 MG CAPSULE PO (05:06)
[2019-04-24] MEDS: ACETAMINOPHEN 325 MG TABLET 650 MG PO (05:06)
--- NOTE | 2019-04-24 07:40 | PM.PNPO.1 ---
Subjective Subjective Date Patient Seen: 04/24/19 Time Patient Seen: 07:40 Interval history: Patient's pain was severe overnight and this morning. Denies fever chills. No shortness of breath or chest pain. Exam Vital Signs (past 8 hours): - 04/24/19 04:50 Temperature 98.5 F Pulse Rate 66 Respiratory Rate 16 Blood Pressure 105/56 L Pulse Oximetry 93 Oxygen Delivery Method Room Air Oxygen Flow Rate 0 Narrative Exam Narrative: 68-year-old male resting comfortably in bed in no apparent distress. Lumbar dressing is clean, dry and intact. Both legs are warm and dry. SCDs on and functioning. Sensation grossly intact to light touch. Motor functions intact bilateral lower extremities. Objective Labs Result Diagrams: 04/23/19 08:15 Labs: Laboratory Results - last 24 hr 04/23/19 08:15 WBC 12.4 H RBC 3.78 L Hgb 12.9 L Hct 36.9 L MCV 97.7 MCH 34.0 MCHC 34.8 RDW 13.9 Plt Count 202 Assessment & Plan Post-op Postoperative Procedures: Procedures Operation Date: 04/22/19 12:15 Actual Procedures Side Surgeon p L3-4 hemilaminectomy, L4-5 TLIF w/ posterior instrumentation Not Applicable Sadaf Anguiano MD Postop day 2. Work on pain control. Encourage IS. Mobilize with physical therapy. Likely discharge home tomorrow.
[2019-04-24 08:07] VITALS: BP 105/56; PULSE 63; TEMP 37.2; O2SAT 97
[2019-04-24] MEDS: ACYCLOVIR 400 MG TABLET PO (08:48)
[2019-04-24] MEDS: GABAPENTIN 300 MG CAPSULE PO (08:48)
--- NOTE | 2019-04-24 09:50 | OT.IP.TRT ---
Current Diagnoses Spondylolisthesis, lumbar region (04/22/19) Spinal stenosis, lumbar region with neurogenic claudication (04/22/19) Surgery Performed Operation Date: 04/22/19 12:15 Actual Procedures p L3-4 hemilaminectomy, L4-5 TLIF w/ posterior instrumentation(Not Applicable) - Sadaf Anguiano MD Occupational Therapy Treatment Note 04/24/19 [id number] 49 min M2 OT-IP Current Condition Start: 04/23/19 12:22 Freq: Status: Active Protocol: Document 04/24/19 09:50 PJM (Rec: 04/25/19 15:47 PJM [id number]) Occupational Therapy Current Condition Current Condition Treatment Diagnosis decreased self care s/p L3-4 hemilami, L4-5 TLIF Diagnosis Onset Date 04/22/19 Post Operative Precautions Lumbar Precautions Log Roll,No Twisting,Limit Bending,Lifting Restriction of 10 lbs,Gait Belt above Incisional Area M4 OT- IP ADL's Start: 04/23/19 12:22 Freq: Status: Active Protocol: Document 04/24/19 09:50 PJM (Rec: 04/25/19 15:47 PJM [id number]) OT [id number]-[id number] General Evaluation Self-Feeding Ability Independent OT ADL-Grooming General Evaluation Grooming Ability Independent Areas Needing Assistance Combing/Brushing Hair Comments OT Grooming Comments standing at sink with FWW OT ADL-Oral Care General Eval Oral Care Ability Independent Areas of Assistance Brushing Teeth Comments Oral Care Comments standing at sink with FWW OT ADL-Dressing General Eval Upper Body Dressing Ability Independent Lower Body Dressing Ability Standby Assistance Areas Needing Assistance Pull-Over Shirt,Underpants/ Brief,Pants/Shorts,Socks,Shoes Assistive Devices Dressing Assistive Devices Long Handled Shoe Horn,Unarmed Security Guard ,Sock Aid Comments OT Dressing Comments Provided sock aid and long shoe horn and education to pt re: equipt use; 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 can assist PRN at home OT ADL-Toileting General Evaluation Toileting Ability Independent Areas Needing Assistance Manage Clothing,Perform Perineal Hygiene Comments OT Toileting Comments provided education re: body mechanics; declines toilet paper aid OT ADL-Bathing Bathing Type Bathing Type Shower General Evaluation Bathing Ability Minimal Assistance Areas Needing Assistance Wash/Dry Back Devices Bathing Equipment Hand Held Shower Sprayer, Shower Chair with Arms,Grab Bars Comments OT Bathing Comments pt has shower seat, long bath sponge and hand held shower at home; girlfriend can assist PRN M7 OT- IP Mobility and Balance Start: 04/23/19 12:22 Freq: Status: Active Protocol: Document 04/24/19 09:50 PJM (Rec: 04/25/19 15:47 PJM [id number]) OT- Bed Mobility Assessment Rolling Type of Rolling Log Rolling,Roll to Right Level of Assistance Independent Supine to Sit Supine to Sit Assist Independent Scooting Scooting to Edge of Bed Independent OT-Transfer Assessment Sit to and From Stand Sit to and from Stand Standby Assistance Transfers Transfer Ability Standby Assistance Technique Transfer Destination Chair,Shower Stall,Toilet Transfer Technique Stand Step Pivot Devices Transfer Assistive Devices Gait Belt,Front Wheeled Walker Comments Mobility Comments good log roll technique from flat bed, no rail; provided education re: car transfer technique OT- Gait Assessment Gait Gait Assistance Required: Standby Assistance Distance (Feet) 35 Assistive Devices Assistive Device Gait Belt,Front Wheeled Walker Comments Gait Ability Comments no loss of balance noted OT- Balance Assessment Sitting Balance and Reactions Static Sitting Balance Ability Good Dynamic Sitting Balance Ability Good Standing Balance and Reactions Static Standing Balance Ability Good Dynamic Standing Balance Ability Good Comments Other Balance Tests/Deviations/Treatment during dressing, grooming, : showering M9 OT- IP Assessment and Plan Start: 04/23/19 12:22 Freq: Status: Active Protocol: Document 04/24/19 09:50 PJM (Rec: 04/25/19 15:47 PJM [id number]) OT Summary Assessment and Plan Potential Rehabilitation Potential Good Summary Progress Towards Goals Safe For Discharge,Goals Met Assessment Summary Pt seen for final ADL training session as described above, and all OT goals achieved for this admission. Pt plans to d/ c home today with 24 hour assist from girlfriend for one month. No further OT services needed. Frequency of Treatment Frequency Of Treatment Discharge Discharge Recommendations OT Discharge Recommendations Home with 24/7 Assist Home Equipment Needs pt has all necessary equipt
--- NOTE | 2019-04-24 09:52 | PC.NURSE ---
Assess- Pt is A&Ox3. He states that his pain is a 7/10 upon movement and working with physical therapy. He is a one person assist with walker to ambulate and use the bathroom. O.T. just in room with patient and he showered and is dressed. His main concern was wiping his bottom, he was trained by occupational therapy and she showed him the proper tools that he could get off of [employer] to help himself. Pt does have a girlfriend at home and will be able to assist him with showers and going the restroom.
--- NOTE | 2019-04-24 10:00 | PM.DS.1 ---
History of Present Illness History of Present Illness Date Patient Seen: 04/24/19 Time Patient Seen: 10:01 Chief complaint: [id number] Narrative: see progress note Discharge Providers Provider Date of admission: 04/22/19 10:13 Discharge Date: 04/24/19 Consults: 04/22/19 18:28 Consult to Occupational Therapy Evaluate & Treat Comment: Physician Instructions: Evaluate and treat Consult to Physical Therapy Evaluate & Treat Comment: Physician Instructions: Evaluate and Treat Discharge provider: Dejuan Angel PA-C Summary Hospital Course Discharge Diagnosis: Date of procedure: 04/22/19 Time of procedure: 13:27 Pre-op diagnosis: 1. L3-4, L4-5 spinal stenosis 2. L4-5 spondylolisthesis Post-op diagnosis: same Procedure & Clinicians Procedure: 1. L4-5 Postero-lateral and posterior interbody fusion 2. L4-5 interbody cage placement. 3. L4-5 decompressive laminectomy with bilateral facetecomies 4. L4-5 Posterior non-segmental instrumentation 5. L3-4 hemilaminectomy 6. [place] of bone marrow from iliac crest 7. Utilization of microsurgical technique and operating microscope Hospital Course: [address] [address] Operative Note Patient: Renan Brandt R#: [id number] : 2Acct:[id number] Age/Sex: 68 / M Date of Service: 04/22/19 Provider: Sadaf Anguiano MD Operative Date/Time/Diagnoses Date of procedure: 04/22/19 Time of procedure: :27 Pre-op diagnosis: 1. L3-4, L4-5 spinal stenosis 2. L4-5 spondylolisthesis Post-op diagnosis: same Procedure & Clinicians Procedure: 1. L4-5 Postero-lateral and posterior interbody fusion 2. L4-5 interbody cage placement. 3. L4-5 decompressive laminectomy with bilateral facetecomies 4. L4-5 Posterior non-segmental instrumentation 5. L3-4 hemilaminectomy 6. [place] of bone marrow from iliac crest 7. Utilization of microsurgical technique and operating microscope Same procedure as scheduled: Yes Indications: Patient has been having chronic back pain and worsening lumbar radiculopathy. Patient failed multiple conservative management with worsening pain weakness and numbness in her lower extremity. Patient has been having difficulty performing activity of daily living. After discussing risks benefits of treatment options, patient elected proceed with surgery. Surgeon: Sadaf Anguiano Bead Stringer: Naty Camacho Click Yes if Unassisted: No Anesthesia Type: General Operative Notes Closure Type: primary Specimen(s): none sent Prosthetic devices, grafts, tissues, transplants, or devices: Globus revolve screws, Rise cage Estimated Blood Loss (mL): 50 Blood products transfused: none Patient admitted to the hospital for the above-mentioned procedures. Patient consented to the same. Patient taken to operating room on April 22, 2019. Surgery went well no complications. Patient back in his room recovering well as in stable condition. Patient worked with physical therapy and occupational therapy. Patient wishes to be discharged home today. Patient is stable for discharge home today. Exam Vital Signs (past 8 hours): - 04/24/19 04:50 04/24/19 08:07 Temperature 98.5 F 99 F Pulse Rate 66 63 Respiratory Rate 16 Blood Pressure 105/56 L 105/56 L Pulse Oximetry 93 97 Oxygen Delivery Method Room Air Oxygen Flow Rate 0 Narrative Exam Narrative: See progress note Objective Labs Result Diagrams: 04/23/19 08:15 Discharge Plan Discharge Plan Patient Disposition: Home Discharge orders & Medications Prescriptions: New acetaminophen 325 mg Tablet 650 mg PO Q6HR PRN (Reason: Pain, Mild (1-3)) Qty: 60 RF: 0 oxycodone 5 mg Tablet 5 mg PO Q3HR PRN (Reason: Pain, Severe (7-10)) Qty: 60 RF: 0 hydroxyzine pamoate 25 mg Capsule 25 mg PO Q4HR PRN (Reason: Nausea And Vomiting) Qty: 30 RF: 1 Continued ibuprofen 800 mg Tablet 800 mg PO TID PRN (Reason: Pain) RF: 0 simvastatin 10 mg Tablet 10 mg PO BEDTIME RF: 0 acyclovir 400 mg Tablet 400 mg PO DAILY RF: 0 gabapentin 300 mg Capsule 300 mg PO BID RF: 0 cyclobenzaprine 5 mg Tablet 5 mg PO TID PRN (Reason: Pain) RF: 0 alfuzosin [Uroxatral] 10 mg Tablet Extended Release 24 Hr 20 mg PO BEDTIME RF: 0 Discontinued diclofenac sodium 100 mg Tablet Extended Release 24 Hr 100 mg PO DAILY RF: 0 Follow up/Referrals: Sadaf Anguiano MD [Physician] - (2 wks ) Diet/Activity/Treatments Diet: Diet as Tolerated Activity: WBAT, limit bending, lifting, twisting Cold/Heat Therapy: as needed Skin/Wound/Dressing Care Report to your healthcare provider any signs of infection, such as:: chills, fever and increased pain Dressing: keep clean and dry Visit Report/Discharge Packet Instructions: DI for Transforaminal Lumbar Interbody Fusion
== END 2019-04-24 13:30 | disposition home or self-care (01) | DRG 455 ==
PROVIDERS: Physician Assistant Surgical; Admitting Provider Orthopaedic Surgery Orthopaedic Surgery of the Spine; Visit Provider Orthopaedic Surgery Orthopaedic Surgery of the Spine
PROC: 0SG00AJ Fusion of Lumbar Vertebral Joint with Interbody Fusion Device, Posterior Approach, Anterior Column, Open Approach (ICD-10-PCS; principal; 2019-04-22 12:15)
DX: M48.062 Spinal stenosis, lumbar region with neurogenic claudication (principal); M43.16 Spondylolisthesis, lumbar region; Z87.891 Personal history of nicotine dependence
CPT/HCPCS: 36415; 72100; 76000; 85027; 97116; 97161; 97165; 97530; 97535; C1776; C9290; J0330; J0690; J1100; J1170; J2405; J2704; J3010; J3410

== ENCOUNTER → 2020-12-24 12:55 | Outpatient (CLI) | payer MEDICARE, SELFPAY ==
[2019-04-22 19:47] VITALS: BMI 33.8
--- NOTE | 2020-12-24 | DI.CT.S_ITS ---
PROCEDURE: CT LUMBAR SPINE WO CON INDICATIONS: Spinal stenosis, lumbar region with neurogenic cla TECHNIQUE: Noncontrast 3 mm thick sections acquired from the T12 level to the sacrum. Sagittal and coronal reformats were constructed. For radiation dose reduction, the following was used: automated exposure control. COMPARISON: [facility], CR, XR LUMBAR SPINE 2 OR 3 VIEWS, 05/27/2019, 10:38. [facility], CR, XR LUMBAR SPINE 2 OR 3 VIEWS, 01/01/2019, 14:31. [facility], MR, MR LUMBAR SPINE WITHOUT CONTRAST, 01/09/2019, 19:10. [facility], CT, CT LUMBAR SPINE WITHOUT CONTRAST, 10/06/2020, 16:41. FINDINGS: Image quality: Excellent. Bones: Vertebral body height and alignment is maintained. In L4-5 spacer graft and associated debbie and screw instrumentation in good position. No evidence of hardware failure loosening. Degenerative endplate changes and persistent lucency along the spacer is noted. Additionally, there are sclerotic densities in the L2 vertebral body, the largest of which measures 2 by 0.7 cm, unchanged from the priors. T12-L1: Unremarkable. No central or foraminal stenosis. L1-L2: Unremarkable. No central or foraminal stenosis. L2-L3: Moderate disc space narrowing with circumferential disc bulge and hypertrophic facet joints resulting in moderate central and moderate bilateral foraminal stenosis. L3-L4: Moderate disc space narrowing and vacuum disc phenomena associated with circumferential disc bulge and hypertrophic facet joints. There is moderate central stenosis and moderate to severe bilateral foraminal stenosis. L4-L5: Discectomy and fusion present. Central canal is widely patent. Severe right and moderate left foraminal stenosis noted. L5-S1: Severe disc space narrowing and circumferential disc bulge present without central stenosis. There is severe right and moderate left foraminal stenosis present. Soft tissues: Incidental bilateral renal peripelvic cysts greater on the left are also stable from the prior IMPRESSION: 1. Multilevel degenerative disc disease and arthropathy resulting in varying degrees of central and foraminal stenosis including moderate central and bilateral foraminal stenosis at L2-3 and L3-4. 2. Stable sclerotic densities in the L2 vertebral body 3. L4-5 discectomy and fusion with posterior debbie and screw instrumentation in good position. Dictated by: Salazar Patterson M.D. on 12/25/2020 at 11:14 Approved by: Salazar Patterson M.D. on 12/25/2020 at 11:48
== END ==
PROVIDERS: Referring Provider Orthopaedic Surgery Orthopaedic Surgery of the Spine; Visit Provider Orthopaedic Surgery Orthopaedic Surgery of the Spine
DX: M48.062 Spinal stenosis, lumbar region with neurogenic claudication (principal); M48.07 Spinal stenosis, lumbosacral region; M51.36 Other intervertebral disc degeneration, lumbar region; M51.37 Other intervertebral disc degeneration, lumbosacral region; M47.816 Spondylosis without myelopathy or radiculopathy, lumbar region; Z98.1 Arthrodesis status
CPT/HCPCS: 72131

== ENCOUNTER 2020-12-25 06:14 | Inpatient (IN) | payer MEDICARE, SELFPAY ==
[2019-04-22 19:47] VITALS: BMI 33.8
[2020-12-17 08:51] VITALS: BMI 33.5
[2020-12-25] VITALS (16 sets, daily range): BP systolic 98–134; BP diastolic 52–84; PULSE 53–74; RESP 12–27; TEMP 35.8–37.5; O2SAT 92–99; BMI 33.5
[2020-12-25 07:24] LABS: COVID19 -Nasal RAPID Negative (Negative)
[2020-12-25] MEDS: LACTATED RINGERS 1,000 ML 42 ML IV ×3 (07:29→11:18)
[2020-12-25] MEDS: ACETAMINOPHEN 325 MG TABLET 975 MG PO (07:38)
--- NOTE | 2020-12-25 07:38 | PM.PREOP ---
Pre-operative Note COVID-19 COVID-19 status: Negative Result date/Date tested (Pos, Neg/Pending): 12/23/20 Interval Note History & Physical reviewed/Exam performed by Physician: Yes Changes to H&P: No
[2020-12-25] MEDS: CEFAZOLIN 1 GM VIAL 2 GM IV ×3 (08:26→21:19)
[2020-12-25] MEDS: BUPIVACAINE LIPOSOME 266 MG/20 ML VIAL INJ (08:37)
[2020-12-25] MEDS: BUPIVACAINE 0.25% W/ EPI 30 ML VIAL INJ (08:37)
--- NOTE | 2020-12-25 13:00 | DI.RAD.S_ITS ---
PROCEDURE: XR LUMBAR SPINE 2-3V INDICATIONS: L3-4, L5-S1 TLIF TECHNIQUE: 2 intraoperative fluoroscopic views of the lumbar spine were acquired. COMPARISON: [facility], , XR LUMBAR SPINE 2-3V, 04/22/2019, 16:35. FINDINGS: Intraoperative fluoroscopic images shows posterior fusion hardware and intervertebral spacer extending from L3 through S1 levels. IMPRESSION: Fluoro guidance was provided intraoperatively for lower lumbar spine fusion. Dictated by: Jatinder Kumari M.D. on 12/25/2020 at 18:03 Approved by: Jatinder Kumari M.D. on 12/25/2020 at 18:04
--- NOTE | 2020-12-25 13:18 | PM.OP.1 ---
Operative Date/Time/Diagnoses Date of procedure: 12/25/20 Time of procedure: 08:00 Pre-op diagnosis: 1. L3-4, L4-5, L5-S1 spinal stenosis 2. Hx of L4-5 fusion with instrumentation 3. Lumbar spondylosis with radiculopathy Post-op diagnosis: same Procedure & Clinicians Procedure: 1. L3-4, L5-S1 posterolateral and posterior interbody fusion 2. L3-4, L5-S1 posterior interbody cage placement 3. L4-5 posterior non-segmental instrumentation removal 4. L4-5 revision laminectomy with exploration of fusion 5. L3-4, L4-5, L5-S1 posterior segmental instrumentation with pedicle screw placement 6. L4-5 posterolatearl fusion 7. [place] of bone marrow from iliac crest through a separate incision 8. Utilization of microsurgical technique and operating microscope Same procedure as scheduled: Yes Indications: Patient has been having chronic back pain and worsening lumbar radiculopathy. Patient had previous lumbar fusion surgery and was doing well until approximately 6 months ago with worsening pain due to the adjacent level having significant spondylosis and worsening foramen stenosis. Patient failed multiple conservative management with worsening pain weakness and numbness in her lower extremity. Patient has been having difficulty performing activity of daily living. After discussing risks benefits of treatment options, patient elected proceed with surgery. Surgeon: Sadaf Anguiano Director Biologics: Donald Montano Click Yes if Unassisted: No Anesthesia Type: General Operative Notes Closure Type: primary Specimen(s): none sent Prosthetic devices, grafts, tissues, transplants, or devices: Globus CREO screws, Rise cages Applied: catheter Estimated Blood Loss (mL): 100 Blood products transfused: none Procedure in detail: Patient was seen in the preoperative area. Risks and benefits of the surgery was discussed with the patient. Informed consent was obtained from the patient and placed in the chart. Surgical site was marked. Patient was taken to the operative room. General anesthesia was administered. Prophylactic antibiotic was given to the patient less than 30 min before the incision was made. Patient was placed into a prone position on the Tobias table. Patient's back was then prepped and draped in the sterile fashion. Time-out was performed at this time. After patient was prepped and draped, patient's PSIS was palpated and marked bilaterally. Small 1 cm incision was made over the PSIS for placement of the reference probes. Two trocar was placed into the PSIS 1 on each side. The reference probe was attached to the trocar of the reference apparatus. At this time the C-arm imaging was used to confirm AP and lateral of L3, L4, L5, and S1 vertebrae and merged the C-arm imaging using the [employer] robotic navigation system with the CT of the lumbar spine. After successful merging was completed and confirmed, skin marker was used to winter out the skin incision using the [employer] robotic arm. Bilateral incision was made at this time. Using patient's previous scar incision was made over the L3, L4, L5-S1 interval on the left side. Fascia was incised in line with skin incision. Patient's previously placed hardware over the L4-5 level was identified by dissecting down to the level the hardware using a Bovie and a Swann. The locking caps which was removed using Nasty Galus screwdriver. The locking debbie was then removed from the tulips of the pedicle screws using a Chely. The pedicle screws were then removed using the screwdriver. The screws were found to have good purchase. Pre templated trajectory was used and guided using the [employer] robotic navigation system for left L3, L4, L5 and S1 pedicle screws and right L3, L4 L5, and S1 pedicle screws placement. This was done by using the robotic arm to guide the high-speed bur to make a cortical entry point. Next a drill was placed also using the robotic arm and guided using the navigation system drilling partially through bilateral L3, L4, L5, S1 pedicles. Next L3, L4, L5, S1 pedicle screws it was pre templated and measured was placed onto the power armor reconnaissance vehicle driver and inserted into the pedicles bilaterally. After all 8 screws were placed C-arm imaging was taken of both AP and lateral to confirm the placement. Excellent placement of the screws were confirmed and a matched precisely with the pre planned screw placement using the navigation system. MARs retractor was inserted using [employer] guidence. Globus MARS retractors was placed inside the incision and docked onto the L3 and L5 lamina. Using microsurgical technique and operating microscope, a L3, L5 laminectomy and L3-4, L5-S1 facetectomy was performed using a Kerrison rongeur. Patient was found have severe lateral recess and neural foramen stenosis which was fully decompressed after the laminectomy facetectomy. More than 75% of the facets were removed during the process of decompression rendering L3-4, L5-S1 level grossly unstable and required a fusion procedure at the same time. The disc space at L3-4, L5-S1 was identified, and a total diskectomy was performed at L3-4, L5-S1 level. The endplates were decorticated using a rasp and shaver. The total diskectomy and decortication was performed at L3-4, L5-S1 level in order to to accomplish a L3-4, L5-S1 fusion. The local bone from the laminectomy and facetectomy was saved for local bone grafting. After the total diskectomy and decortication was completed, Trifecta bone graft material was combined with local bone that was harvested earlier. At this time, a separate skin is incision was made over the iliac crest. A Jamshidi needle was inserted into the iliac crest through a separate skin incision. 5 cc of bone marrow aspiration was obtained through the separate skin incision using a Jamshidi needle from the iliac crest. The bone marrow aspiration was combined with local bone and the Trifecta bone grafting material. The bone grafting material was placed into the L3-4, L5-S1 interbody space along with a expandable cage. The cage was expanded to its maximum height using the torque limiting screwdriver. The disc preparation as well as the cage insertion were also performed under navigation guidance. After the cage was placed, AP and lateral C-arm imaging was taken to confirm placement of the cage and excellent position was confirmed. The fusion mass on the right side of L4-5 was exposed by performing a right-sided hemilaminectomy at L4-5 level. The hemilaminectomy was performed using the Kerrison rongeur to undercut the lamina as well removing additional epidural scar tissue for purpose of decompressing the epidural space. The fusion mass was explored and was found have visible motion indicating pseudoarthrosis. Globus MARS retractor was inserted and docked onto the L3-4, L4-5 L5-S1 posterolateral gutter. Using the power drill, posterior-lateral decortication was performed at L3-4, L4-5 L5-S1 level until bleeding cortical bone was identified. The remaining bone grafting material was placed into the L3-4, L4-5 L5-S1 posterior lateral gutter he order to accomplish posterolateral fusion at the L3-4, L4-5 L5-S1 level. At this time the tulips were attached to the L3, L4-L5 and S1 pedicle screw shanks. This was done in L3, L4-L5 S1 pedicles bilaterally. After measuring the length of the rods, they were inserted into the tulips of the pedicle screws and locked in place using locking caps and torque limiting screwdriver bilaterally. Total 8 caps and 2 titanium rods was used in order to complete the posterior instrumentation construct. After all the hardware was placed, and confirmed with AP and lateral C-arm imaging, the wound was then irrigated with sterile normal saline and packed with Ray-Chloe gauze for 3 min to accomplish hemostasis. After the gauze was removed the deep fascia was closed with #1 Vicryl suture. The subcutaneous layer was closed with 2-0 Vicryl. The skin was closed with skin melania. Patient tolerated the procedure well. There were no complications. Neuro monitoring system was used to monitor patient's neurologic status throughout entire procedure. There was no disturbance of the neural monitoring signals throughout the case. Complications: none Post-operative Condition: stable Disposition: PACU Plan for aftercare: Admit to inpatient hospital
[2020-12-25] MEDS: fentaNYL 100 MCG/2 ML INJ IV ×2 (14:19→14:24)
[2020-12-25] MEDS: OXYCODONE IR 5 MG TABLET PO (14:31)
[2020-12-25] MEDS: SODIUM CHLORIDE 0.9% 1,000 ML 100 ML IV (17:00)
[2020-12-25] MEDS: OXYCODONE IR 5 MG TABLET 10 MG PO (17:00)
[2020-12-25] MEDS: HYDROMORPHONE 0.5 MG INJ IV (17:55)
[2020-12-25] MEDS: DOCUSATE 100 MG CAPSULE PO (21:18)
[2020-12-25] MEDS: SENNOSIDES 8.6 MG TABLET 17.2 MG PO (21:19)
[2020-12-26] VITALS (7 sets, daily range): BP systolic 98–134; BP diastolic 58–74; PULSE 54–76; RESP 14–16; TEMP 36.4–36.9; O2SAT 96–98
[2020-12-26] MEDS: ACETAMINOPHEN 325 MG TABLET 650 MG PO ×3 (00:12→19:04)
[2020-12-26] MEDS: OXYCODONE IR 5 MG TABLET 10 MG PO ×5 (02:20→23:01)
[2020-12-26] MEDS: SODIUM CHLORIDE 0.9% 1,000 ML 100 ML IV ×2 (03:54→17:36)
[2020-12-26] MEDS: CEFAZOLIN 1 GM VIAL 2 GM IV (04:13)
[2020-12-26] MEDS: HYDROMORPHONE 0.5 MG INJ IV ×2 (06:22→19:05)
[2020-12-26 06:36] LABS: Hematocrit 36.3 % (41-53); Hemoglobin 12.3 g/dL (13.5-17.5)
--- NOTE | 2020-12-26 07:55 | P.PN_ITS ---
Subjective Subjective Date Patient Seen: 12/26/20 Time Patient Seen: 07:55 Interval history: Patient states he is doing well overall and is in mild discomfort at rest. At this time he rates his pain a 2/10 in intensity. Patient denies fever, chills, nausea, chest pain, or shortness of breath. Patient reports good sensation throughout the bilateral lower extremities. Exam Vital Signs (past 8 hours): - 12/26/20 00:15 12/26/20 03:00 Temperature 97.8 F 98.0 F Pulse Rate 60 56 L Respiratory Rate 14 16 Blood Pressure 113/66 103/59 L Pulse Oximetry 96 97 Oxygen Delivery Method Room Air Oxygen Flow Rate 0 Narrative Exam Narrative: Pleasant 70-year-old male postop day 1 status post lumbar fusion. Patient is resting comfortably in bed, is in no acute distress, is alert and oriented x3. Skin is warm and dry, and the skin surrounding the incision site is free of erythema, warmth, induration, or discharge. Dressing over the incision site is intact, with strike through appreciated on both 4 x 4 bandage is. Good sensation appreciated throughout the bilateral lower extremities to light touch. Ankle dorsiflexion, plantar flexion, eversion, inversion performed bilaterally without difficulty or discomfort. Calves are soft and nontender, negative Homans sign. DP pulses palpated bilaterally and are even. No other signs of DVT appreciated. Const General: cooperative, healthy appearing and comfortable Resp Effort & Inspection: normal respiratory effort and able to speak in complete sentences Skin General: no rashes or lesions noted Objective Labs Result Diagrams: 12/26/20 06:20 Labs: Laboratory Results - last 24 hr 12/26/20 06:20 Hgb 12.3 L Hct 36.3 L PFSH Medical History BPH (benign prostatic hyperplasia) History of deviated nasal septum (~2013) HLD (hyperlipidemia) Incontinence of feces with fecal urgency Sciatica Urinary urgency Surgical History H/O vasectomy H/O wrist surgery History of ankle surgery History of arthroscopy of both knees History of bilateral cataract extraction History of lumbar spinal fusion (04/22/19) Hx of foot surgery Hx of hernia repair Hx of tonsillectomy Social History household members: none Smoking Status: Former smoker alcohol intake: current Assessment & Plan Post-op Postoperative Procedures: Procedures Operation Date: 12/25/20 07:45 Actual Procedure Side Surgeon p L3-4, L5-S1 TLIF, L4-5 lumbar HWR, exploration of fusion, repeat laminectomy, reinsertion of hardware L3-S1 PSF w. instrumentation Sadaf Anguiano MD Postoperative day: 1 Postoperative status: doing well Postoperative plan: ambulate Postoperative plan narrative: Patient is to work on ambulation with the assistance of a front wheeled walker with physical therapy. Current pain management regimen is to be continued as it is adequately controlled the patient 's pain level. Sequential compression devices are to be continued for DVT prophylaxis. Will continue to monitor the patient's status with physical therapy. Patient also has history of urinary retention following surgery so we will monitor the patient to ensure that he can void prior to discharge. Quality VTE Deep Vein Thrombosis/Pulmonary Embolism Present on Admission: No
[2020-12-26] MEDS: ACYCLOVIR 400 MG TABLET PO (08:36)
[2020-12-26] MEDS: DOCUSATE 100 MG CAPSULE PO ×2 (08:36→19:04)
--- NOTE | 2020-12-26 09:30 | PT.IIE ---
Current Diagnoses Other spondylosis with radiculopathy, lumbosacral region (12/25/20) Spinal stenosis, lumbar region with neurogenic claudication (12/25/20) Arthrodesis status (12/25/20) Surgery Performed Operation Date: 12/25/20 07:45 Actual Procedures p L3-4, L5-S1 TLIF, L4-5 lumbar HWR, exploration of fusion, repeat laminectomy, reinsertion of hardware L3-S1 PSF w. instrumentation - Sadaf Anguiano MD Medical History (Last Reviewed 12/26/20 @ 07:56 by Donald Montano PA-C) BPH (benign prostatic hyperplasia) History of deviated nasal septum (~2013) HLD (hyperlipidemia) Incontinence of feces with fecal urgency Sciatica Urinary urgency Physical Therapy Inpatient Evaluation/Re-Eval M1 PT/OT-IP Prior Functional Status Start: 12/26/20 11:25 Freq: NEEDED Status: Active Protocol: Document 12/26/20 09:30 AB (Rec: 12/26/20 12:21 AB [email or web address]) Medical Review Prior Functional Status Communication able to make needs known Mobility and Gait pt stated that he is independent with all mobilities and ambulation without AD; Social History Household Members none Living Arrangements House Number of Floors (Floors) One Floor Number of Stairs To Enter/Railing? 2 platform steps to enter Home Environment High Toilet,Tub/Shower Home Equipment Front Wheel Walker,Four Wheel Walker,Quad Cane,Straight Cane ,Manual Wheelchair,Shower Seat with Backrest,Hand Held Shower,Grab Bars In Shower Additional Social History Comment pt has an adjustable bed pt stated that his girlfriend will stay with him for ~ 1 month to assist him M2 PT-IP Current Condition Start: 12/26/20 12:07 Freq: NEEDED Status: Active Protocol: Document 12/26/20 09:30 AB (Rec: 12/26/20 12:21 AB [email or web address]) Physical Therapy Current Condition Current Condition Evaluation Date 12/26/20 Treatment Diagnosis s/p L3-4, L5S1 fusion; L3-S1 instrumentation; difficulty in walking Onset Date 12/25/20 Precautions Lumbar Precautions Log Roll,No Twisting,Limit Bending,Lifting Restriction of 10 lbs,Gait Belt above Incisional Area M3 PT-IP Subjective Start: 12/26/20 12:07 Freq: NEEDED Status: Active Protocol: Document 12/26/20 09:30 AB (Rec: 12/26/20 12:21 AB [email or web address]) Subjective Physical Therapy Visit Type Type Initial Evaluation Visit Start Time 09:30 Visit Stop Time 10:10 Total Visit Minutes 40 Number of OVERLAY OPERATOR Visits 0 Physical Therapy Visit Comments Patient Comments pt is agreeable to do PT Therapy Pain Assessment Pain When Pain Assessed At Rest Pain Present Pain Present Pain Reported Location lower back Intensity 3 Scale Used Numeric (0 - 10) Pain Management Techniques Apply Cold,Distraction, Modification of Treatment,Re- positioning,Timing of Activity with Medications M4 PT-IP Mobility and Gait Start: 12/26/20 12:07 Freq: NEEDED Status: Active Protocol: Document 12/26/20 09:30 AB (Rec: 12/26/20 12:21 AB [email or web address]) PT-Bed Mobility Assessment Rolling Type of Rolling Log Rolling Level of Assist Standby Assistance Supine to Sit Supine to Sit Standby Assistance PT-Transfer Assessment Sit to and From Stand Sit to and from Stand Minimal Assistance,1 Person Assistance Equipment Transfer Assistive Device Gait Belt,Front Wheeled Walker Orthotic/Prosthetic Devices or Brace: No Transfers Transfer Destination Chair Transfer Technique ambulated using FWW Transfer Ability Level of Assist Minimal Assistance,1 Person Assistance,Use of Upper Extremities Comments Mobility Comments educated pt on back precautions and log roll bed mobility. BP in supine: 91/48. pt stated that he is feeling fine. completed log roll supine to sit SBA and cues. pt was able to sit on EOB SBA. BP in sittin/60. pt was able to sit on EOB for another 2 min and BP checked again: 113/61. completed sit to stand min A and cues. pt amublated in room using FWW ~ 30 ft min A. pt agreed to sit up on chair. BP checked after ambulation: 94/54. pt with c/o slight lightheadedness. positioned on chair and rested. BP checked again: 86/47. informed nurse. LE elevated. BP checked again: 99/54. call light and table placed within reach. Gait Assessment Gait Gait Assistance Required: Minimum Assistance Distance (Feet) 30 Able to Maintain Weight Bearing Status Yes During Gait Assistive Devices Assistive Device Gait Belt,Front Wheeled Walker Orthotic/Prosthetic Devices or Brace: No Gait Deviations General Gait Pattern Antalgic,Decreased Stride Length,Decreased Feet Clearance,Step-to Gait Factors Limiting Gait Function Factors Limiting Gait Function Decreased Activity Tolerance, Decreased Strength,Limited Range of Motion,Pain,Poor Balance PT-Balance Assessment Sitting Balance and Reactions Static Sitting Balance Ability Good Dynamic Sitting Balance Ability Good Standing Balance and Reactions Static Standing Balance Ability Fair Dynamic Standing Balance Ability Fair Device Used FWW M5 PT-IP Objective Assessments Start: 12/26/20 12:07 Freq: NEEDED Status: Active Protocol: Document 12/26/20 09:30 AB (Rec: 12/26/20 12:21 AB [email or web address]) Orientation Orientation/Cognition Level of Alertness Alert Orientation Name,Age,Birthday,Month,Date, Year,Day of Week,Place, Situation Language Function Ability No Deficits Noted Safety Awareness Understands Safety Issues Memory Description No Deficits Noted Gross Range of Motion Lower Extremity ROM Assessment Within Functional Limits Strength Lower Extremity Strength Hip 4-/5 Knee 4-/5 Coordination Assessment Gross Coordination Gross Coordination WNL Sensation Assessment Sensation Gross Sensation WNL Muscle Tone Muscle Tone WNL Yes M6 PT-IP Treatment Start: 12/26/20 12:07 Freq: NEEDED Status: Active Protocol: Document 12/26/20 09:30 AB (Rec: 12/26/20 12:21 AB [email or web address]) Physical Therapy Treatment Education Education Provided Precautions,Weight Bearing Status,Post-Op Packet,Safety M7 PT-IP Assessment and Plan Start: 12/26/20 12:07 Freq: NEEDED Status: Active Protocol: Document 12/26/20 09:30 AB (Rec: 12/26/20 12:21 AB [email or web address]) PT Summary Assessment and Plan Potential Rehabilitation Potential Good Status of Condition at Evaluation Stable Summary Impairments Pain,ROM,Strength,Balance, Coordination,Sensation,Tone, Cognition,Bed Mobility, Transfers,Gait,Activity Tolerance Assessment Summary pt requring min A for ambulation using FWW at this time. will likely progress during hospital stay. pt's girlfriend will be staying with pt to assist him at home. will conduct caregiver training when appropriate as well as stair climbing training. Goals Bed Mobility Goal Independent Transfer Goal Independent,Front Wheeled Walker Gait Goal Independent,Front Wheel Walker Gait Distance 200 Other Goals up/down 2 platform steps using FWW SBA Days to Meet Goals 5 Frequency of Treatment Frequency Of Treatment Twice a Day Treatment Plan Physical Therapy Treatment Plan Bed Mobility Training,Transfer Training,Gait Training, Therapeutic Exercise,Balance Retraining,Post Op Education, Discharge Planning,Hot or Cold Pack,Neuromuscular Re-ed, Coordination Retraining,Manual Therapy Precautions Lumbar Precautions Log Roll,No Twisting,Limit Bending,Lifting Restriction of 10 lbs,Gait Belt above Incisional Area Recommendations To Nursing Amount of Assist Needed 1 Person Assist Discharge Recommendations PT Discharge Recommendations Home with Assistance Transportation Needs at Discharge Private Vehicle
--- NOTE | 2020-12-26 09:30 | PT.IIE ---
Current Diagnoses Other spondylosis with radiculopathy, lumbosacral region (12/25/20) Spinal stenosis, lumbar region with neurogenic claudication (12/25/20) Arthrodesis status (12/25/20) Surgery Performed Operation Date: 12/25/20 07:45 Actual Procedures p L3-4, L5-S1 TLIF, L4-5 lumbar HWR, exploration of fusion, repeat laminectomy, reinsertion of hardware L3-S1 PSF w. instrumentation - Sadaf Anguiano MD Medical History (Last Reviewed 12/26/20 @ 07:56 by Donald Montano PA-C) BPH (benign prostatic hyperplasia) History of deviated nasal septum (~2013) HLD (hyperlipidemia) Incontinence of feces with fecal urgency Sciatica Urinary urgency Physical Therapy Inpatient Evaluation/Re-Eval M1 PT/OT-IP Prior Functional Status Start: 12/26/20 11:25 Freq: NEEDED Status: Active Protocol: Document 12/26/20 09:30 AB (Rec: 12/26/20 12:21 AB [email or web address]) Medical Review Prior Functional Status Communication able to make needs known Mobility and Gait pt stated that he is independent with all mobilities and ambulation without AD; Social History Household Members none Living Arrangements House Number of Floors (Floors) One Floor Number of Stairs To Enter/Railing? 2 platform steps to enter Home Environment High Toilet,Tub/Shower Home Equipment Front Wheel Walker,Four Wheel Walker,Quad Cane,Straight Cane ,Manual Wheelchair,Shower Seat with Backrest,Hand Held Shower,Grab Bars In Shower Additional Social History Comment pt has an adjustable bed pt stated that his girlfriend will stay with him for ~ 1 month to assist him M2 PT-IP Current Condition Start: 12/26/20 12:07 Freq: NEEDED Status: Active Protocol: Document 12/26/20 09:30 AB (Rec: 12/26/20 12:21 AB [email or web address]) Physical Therapy Current Condition Current Condition Evaluation Date 12/26/20 Treatment Diagnosis s/p L3-4, L5S1 fusion; L3-S1 instrumentation; difficulty in walking Onset Date 12/25/20 Precautions Lumbar Precautions Log Roll,No Twisting,Limit Bending,Lifting Restriction of 10 lbs,Gait Belt above Incisional Area M3 PT-IP Subjective Start: 12/26/20 12:07 Freq: NEEDED Status: Active Protocol: Document 12/26/20 09:30 AB (Rec: 12/26/20 12:21 AB [email or web address]) Subjective Physical Therapy Visit Type Type Initial Evaluation Visit Start Time 09:30 Visit Stop Time 10:10 Total Visit Minutes 40 Number of EXPORT SALES MANAGER Visits 0 Physical Therapy Visit Comments Patient Comments pt is agreeable to do PT Therapy Pain Assessment Pain When Pain Assessed At Rest Pain Present Pain Present Pain Reported Location lower back Intensity 3 Scale Used Numeric (0 - 10) Pain Management Techniques Apply Cold,Distraction, Modification of Treatment,Re- positioning,Timing of Activity with Medications M4 PT-IP Mobility and Gait Start: 12/26/20 12:07 Freq: NEEDED Status: Active Protocol: Document 12/26/20 09:30 AB (Rec: 12/26/20 12:21 AB [email or web address]) PT-Bed Mobility Assessment Rolling Type of Rolling Log Rolling Level of Assist Standby Assistance Supine to Sit Supine to Sit Standby Assistance PT-Transfer Assessment Sit to and From Stand Sit to and from Stand Minimal Assistance,1 Person Assistance Equipment Transfer Assistive Device Gait Belt,Front Wheeled Walker Orthotic/Prosthetic Devices or Brace: No Transfers Transfer Destination Chair Transfer Technique ambulated using FWW Transfer Ability Level of Assist Minimal Assistance,1 Person Assistance,Use of Upper Extremities Comments Mobility Comments educated pt on back precautions and log roll bed mobility. completed log roll supine to sit SBA and cues. pt was able to sit on EOB SBA. completed sit to stand min A and cues. pt amublated in room using FWW ~ 30 ft min A. pt agreed to sit up on chair. positioned on chair. call light and table placed within reach. Gait Assessment Gait Gait Assistance Required: Minimum Assistance Distance (Feet) 30 Able to Maintain Weight Bearing Status Yes During Gait Assistive Devices Assistive Device Gait Belt,Front Wheeled Walker Orthotic/Prosthetic Devices or Brace: No Gait Deviations General Gait Pattern Antalgic,Decreased Stride Length,Decreased Feet Clearance,Step-to Gait Factors Limiting Gait Function Factors Limiting Gait Function Decreased Activity Tolerance, Decreased Strength,Limited Range of Motion,Pain,Poor Balance PT-Balance Assessment Sitting Balance and Reactions Static Sitting Balance Ability Good Dynamic Sitting Balance Ability Good Standing Balance and Reactions Static Standing Balance Ability Fair Dynamic Standing Balance Ability Fair Device Used FWW M5 PT-IP Objective Assessments Start: 12/26/20 12:07 Freq: NEEDED Status: Active Protocol: Document 12/26/20 09:30 AB (Rec: 12/26/20 12:21 AB [email or web address]) Orientation Orientation/Cognition Level of Alertness Alert Orientation Name,Age,Birthday,Month,Date, Year,Day of Week,Place, Situation Language Function Ability No Deficits Noted Safety Awareness Understands Safety Issues Memory Description No Deficits Noted Gross Range of Motion Lower Extremity ROM Assessment Within Functional Limits Strength Lower Extremity Strength Hip 4-/5 Knee 4-/5 Coordination Assessment Gross Coordination Gross Coordination WNL Sensation Assessment Sensation Gross Sensation WNL Muscle Tone Muscle Tone WNL Yes M6 PT-IP Treatment Start: 12/26/20 12:07 Freq: NEEDED Status: Active Protocol: Document 12/26/20 09:30 AB (Rec: 12/26/20 12:21 AB [email or web address]) Physical Therapy Treatment Education Education Provided Precautions,Weight Bearing Status,Post-Op Packet,Safety M7 PT-IP Assessment and Plan Start: 12/26/20 12:07 Freq: NEEDED Status: Active Protocol: Document 12/26/20 09:30 AB (Rec: 12/26/20 12:21 AB [email or web address]) PT Summary Assessment and Plan Potential Rehabilitation Potential Good Status of Condition at Evaluation Stable Summary Impairments Pain,ROM,Strength,Balance, Coordination,Sensation,Tone, Cognition,Bed Mobility, Transfers,Gait,Activity Tolerance Assessment Summary pt requring min A for ambulation using FWW at this time. will likely progress during hospital stay. pt's girlfriend will be staying with pt to assist him at home. will conduct caregiver training when appropriate as well as stair climbing training. Goals Bed Mobility Goal Independent Transfer Goal Independent,Front Wheeled Walker Gait Goal Independent,Front Wheel Walker Gait Distance 200 Other Goals up/down 2 platform steps using FWW SBA Days to Meet Goals 5 Frequency of Treatment Frequency Of Treatment Twice a Day Treatment Plan Physical Therapy Treatment Plan Bed Mobility Training,Transfer Training,Gait Training, Therapeutic Exercise,Balance Retraining,Post Op Education, Discharge Planning,Hot or Cold Pack,Neuromuscular Re-ed, Coordination Retraining,Manual Therapy Precautions Lumbar Precautions Log Roll,No Twisting,Limit Bending,Lifting Restriction of 10 lbs,Gait Belt above Incisional Area Recommendations To Nursing Amount of Assist Needed 1 Person Assist Discharge Recommendations PT Discharge Recommendations Home with Assistance Transportation Needs at Discharge Private Vehicle
--- NOTE | 2020-12-26 11:25 | OT.IP.EVAL ---
Current Diagnoses Other spondylosis with radiculopathy, lumbosacral region (12/25/20) Spinal stenosis, lumbar region with neurogenic claudication (12/25/20) Arthrodesis status (12/25/20) Surgery Performed Operation Date: 12/25/20 07:45 Actual Procedures p L3-4, L5-S1 TLIF, L4-5 lumbar HWR, exploration of fusion, repeat laminectomy, reinsertion of hardware L3-S1 PSF w. ligia - Sadaf Anguiano MD Past Medical History (Last Reviewed 12/26/20 @ 07:56 by Donald Montano PA-C) BPH (benign prostatic hyperplasia) H/O vasectomy H/O wrist surgery History of ankle surgery History of arthroscopy of both knees History of bilateral cataract extraction History of deviated nasal septum (~2013) History of lumbar spinal fusion (04/22/19) HLD (hyperlipidemia) Hx of foot surgery Hx of hernia repair Hx of tonsillectomy Incontinence of feces with fecal urgency Sciatica Urinary urgency Surgical History (Last Reviewed 12/26/20 @ 07:56 by Donald Montano PA-C) H/O vasectomy H/O wrist surgery History of ankle surgery History of arthroscopy of both knees History of bilateral cataract extraction History of lumbar spinal fusion (04/22/19) Hx of foot surgery Hx of hernia repair Hx of tonsillectomy Occupational Therapy Inpatient Evaluation/Re-Eval M1 PT/OT-IP Prior Functional Status Start: 12/26/20 11:25 Freq: NEEDED Status: Active Protocol: Document 12/26/20 09:10 [facility] (Rec: 12/26/20 11:47 [facility] [id number]) Medical Review Prior Functional Status Communication Independent. Mobility and Gait Pt did not use a device and able to walk 2 miles and go dancing. Pt states that after coming to stand after sitting awhile would get stiff and not be able to move due to his back pain for 30-90 seconds. Activities of Daily Living and IADL's Completely independent for all ADl and IADl needs. Social History Household Members none Living Arrangements House Number of Floors (Floors) One Floor Number of Stairs To Enter/Railing? 2 wide steps which can accommodate the FWW for each step. Home Environment Standard Height Toilet,Tub/ Shower Home Equipment Front Wheel Walker,Four Wheel Walker,Quad Cane,Straight Cane ,Bedside Commode,Shower Seat with Backrest,Hand Held Shower ,Long Handled Sponge,Long Handled Shoe Horn,Assistant Attorney General,Sock Aid,Grab Bars In Shower Additional Social History Comment Pt's girlfriend to stay and life with him for a month to help assist with his care. M2 OT-IP Current Condition Start: 12/26/20 11:25 Freq: Status: Active Protocol: Document 12/26/20 09:10 [facility] (Rec: 12/26/20 11:47 [facility] [id number]) Occupational Therapy Current Condition Current Condition Evaluation Date 12/26/20 Treatment Diagnosis s/p L3-4, L5-S1 TLIF, L4-5 HWR removal, explor of fusion, repeat lami Diagnosis Onset Date 12/25/20 Post Operative Precautions Lumbar Precautions Log Roll,No Twisting,Limit Bending,Lifting Restriction of 10 lbs,Gait Belt above Incisional Area M3 OT- IP Subjective and Pain Start: 12/26/20 11:25 Freq: Status: Active Protocol: Document 12/26/20 09:10 [facility] (Rec: 12/26/20 11:47 [facility] [id number]) OT- Subjective Occupational Therapy Visit Type Type Initial Evaluation Visit Start Time 09:10 Visit Stop Time 11:25 Total Visit Minutes 36 Notes Pt seen for split treatment from [id number] and [id number]. Occupational Therapy Visit Comments Patient Comments Pt BP low after getting up with PT and then able to come back in see pt later for OT eval. Patient/Caregiver Goals To go home. OT Pain Assessment Pain When Pain Assessed At Rest Pain Present Pain Present Pain Reported Location lower back Intensity 4 Scale Used Numeric (0 - 10) M4 OT- IP ADL's Start: 12/26/20 11:25 Freq: Status: Active Protocol: Document 12/26/20 09:10 [facility] (Rec: 12/26/20 11:47 [facility] [id number]) OT DDO-Jupe-Ajnkavs General Evaluation Self-Feeding Ability Independent OT ADL-Grooming General Evaluation Grooming Ability Standby Assistance Areas Needing Assistance Retrieving/Set-up of Grooming Items Comments OT Grooming Comments While standing at the sink with FWW. OT ADL-Oral Care General Eval Oral Care Ability Standby Assistance Comments Oral Care Comments Pt tends to lean his arms on the sink but able to keep his back straight. OT ADL-Dressing General Eval Lower Body Dressing Ability Maximum Assistance Comments OT Dressing Comments Pt has all LB dressing equipment at home and also his girlfriend to be able to assist him. OT ADL-Toileting Comments OT Toileting Comments Pt not able to reach and spoke of toilet paper aid, bidet, and that his girlfriend will just end of assisting him. OT ADL-Bathing Comments OT Bathing Comments Pt not wanting to perform. M5 OT- IP IADL's Start: 12/26/20 11:25 Freq: Status: Active Protocol: Document 12/26/20 09:10 [facility] (Rec: 12/26/20 11:47 [facility] [id number]) OT-Instrumental Activities of Daily Living Home Safety Awareness Ability to Problem Solve Emergency Able to Problem Solve Situations Medication Management Medication Management No Deficits Identified Money Management Money Management No Deficits Identified Meal Preparation Meal Preparation Caregiver Provides Assist Crew Dispatcher Crew Dispatcher Caregiver Provides Assist M6 OT- IP Functional Cognition Start: 12/26/20 11:25 Freq: Status: Active Protocol: Document 12/26/20 09:10 [facility] (Rec: 12/26/20 11:47 [facility] [id number]) Cognitive Factors Limiting Selfcare Function Cognitive Ability Level of Alertness Alert Patient Orientation Name,Age,Birthday,Month,Date, Year,Day of Week,Place, Situation Attention Span Ability Capable of Focused Attention, Capable of Sustained Attention Ability to Follow Commands Able to Follow Multi-Step Commands Memory Description No Deficits Noted Safety Awareness No Deficits Noted Problem Solving Ability No deficits Noted Cognitive Comments Cognitive Assessment Comments Pt intact for cognition of OT eval. OT- Vision and Hearing OT- Hearing Assessment OT- Hearing Assessment WFL OT- Vision Assessment Visual Acuity WFL M7 OT- IP Mobility and Balance Start: 12/26/20 11:25 Freq: Status: Active Protocol: Document 12/26/20 09:10 [facility] (Rec: 12/26/20 11:47 [facility] [id number]) OT-Transfer Assessment Sit to and From Stand Sit to and from Stand Contact Guard Assistance Transfers Transfer Ability Standby Assistance,Contact Guard Assistance Technique Transfer Destination Chair Devices Transfer Assistive Devices Gait Belt,Front Wheeled Walker Comments Mobility Comments CGA to stand from recliner , and CGA with FWW to walk to the sink. Pt slight LOB due to having difficulty to turn the FWW. BP 108/59 sitting. 91/60 standing, and after sitting again 134/47 and did not complain of any symptoms. OT- Gait Assessment Comments Gait Ability Comments CGA with FWW. OT- Balance Assessment Sitting Balance and Reactions Static Sitting Balance Ability Normal Dynamic Sitting Balance Ability Good Standing Balance and Reactions Static Standing Balance Ability Fair M8 OT- IP Objective Assessments Start: 12/26/20 11:25 Freq: Status: Active Protocol: Document 12/26/20 09:10 [facility] (Rec: 12/26/20 11:47 [facility] [id number]) OT Gross Range of Motion Upper Extremity Range of Motion Assessment Within Functional Limits OT Strength Upper Extremity Strength Assessment Within Functional Limits M9 OT- IP Assessment and Plan Start: 12/26/20 11:25 Freq: Status: Active Protocol: Document 12/26/20 09:10 [facility] (Rec: 12/26/20 11:47 [facility] [id number]) OT Summary Assessment and Plan Potential Rehabilitation Potential Excellent Analytic Complexity at Evaluation Low Summary OT Impairments Pain,Balance,Functional Mobility,Dressing,Toileting, Bathing,Shower Transfers Progress Towards Goals Progressing Toward Goals Assessment Summary Pt low complexity and main barriers are steps, and now needing one person assist for ADl and functional mobility needs. Pt has a supportive girlfriend to stay and assist him at home. Pt to go home with assist when medically stable. Pt has all equipment needs from prior back surgery in 04/2019. Goals Grooming Goal Independent Dressing Goal Independent Toileting Goal Independent Bathing Goal Independent Toilet Transfer Goal Independent Shower Transfer Goal Independent Days to Meet Goals 2 Frequency of Treatment Frequency Of Treatment Once a Day Treatment Plan OT Treatment Plan ADL Training,Functional Mobility,Patient/Family Education,Discharge Planning Discharge Recommendations OT Discharge Recommendations Home with Assistance Transportation Needs at Discharge Private Vehicle
--- NOTE | 2020-12-26 11:41 | CM.DANOTE ---
DCP: Case received, EMR reviewed and met with patient. Introduced self and role. Was able to obtain information regarding patient's baseline activity status prior to hospitalization. DCP assessment completed with information currently available. Patient is a 70 year old male who admitted yesterday morning to the care of the orthopedic team. PCP: Dr. Eleazar Cotton at [facility]. Payer: confirmed: [facility]. Patient came to the hospital via private vehicle for a surgical procedure. He had L3-4, L5-S1, posterior interbody fusion. Patient has had history of spinal stenosis. Met with patient in his room. He was sitting up in his chair, alert and oriented, pleasant. Confirmed with him that he resides in [place]. He has a daughter named Holly Gamez who resides in [place]. Confirmed with patient that he lives alone, but is planning on his significant other, Desi, assisting him when he goes home. He is independent at his baseline, he does ball room and square dancing. He also mentioned that he has no stairs in his home. 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 P: DCP to continue to follow. Patient may most likely go home tomorrow if deemed medically stable. Was updated by Donald JACOBSON, with plan. Trini Smith RN/Measurement Supervisor
--- NOTE | 2020-12-26 13:25 | PT.IPTN ---
Current Diagnoses Other spondylosis with radiculopathy, lumbosacral region (12/25/20) Spinal stenosis, lumbar region with neurogenic claudication (12/25/20) Arthrodesis status (12/25/20) Surgery Performed Operation Date: 12/25/20 07:45 Actual Procedures p L3-4, L5-S1 TLIF, L4-5 lumbar HWR, exploration of fusion, repeat laminectomy, reinsertion of hardware L3-S1 PSF w. instrumentation - Sadaf Anguiano MD Physical Therapy Treatment Note M2 PT-IP Current Condition Start: 12/26/20 12:07 Freq: NEEDED Status: Active Protocol: Document 12/26/20 09:30 [facility] (Rec: 12/26/20 12:21 AB [id number]) Physical Therapy Current Condition Current Condition Evaluation Date 12/26/20 Treatment Diagnosis s/p L3-4, L5S1 fusion; L3-S1 instrumentation; difficulty in walking Onset Date 12/25/20 Precautions Lumbar Precautions Log Roll,No Twisting,Limit Bending,Lifting Restriction of 10 lbs,Gait Belt above Incisional Area M3 PT-IP Subjective Start: 12/26/20 12:07 Freq: NEEDED Status: Active Protocol: Document 12/26/20 13:25 [facility] (Rec: 12/26/20 15:03 AB [id number]) Subjective Physical Therapy Visit Type Type Treatment Note Visit Start Time 13:25 Visit Stop Time 13:55 Total Visit Minutes 30 Number of INTERNAL AUDIT MANAGER Visits 0 Physical Therapy Visit Comments Patient Comments pt is agreeable to do PT Therapy Pain Assessment Pain When Pain Assessed At Rest Pain Present Pain Present Pain Reported Location lower back Intensity 5 Scale Used Numeric (0 - 10) Pain Management Techniques Apply Cold,Distraction, Modification of Treatment,Re- positioning,Timing of Activity with Medications M4 PT-IP Mobility and Gait Start: 12/26/20 12:07 Freq: NEEDED Status: Active Protocol: Document 12/26/20 13:25 [facility] (Rec: 12/26/20 15:03 [facility] [id number]) PT-Transfer Assessment Sit to and From Stand Sit to and from Stand Standby Assistance Equipment Transfer Assistive Device Gait Belt,Front Wheeled Walker Orthotic/Prosthetic Devices or Brace: No Comments Mobility Comments BP sittin/65. completed sit to stand SBA. BP standin/67. pt remained standing using FWW for support SBa. BP after 2 min: 111/61. pt ambulated in room using FWW SBA to CGA 30 ft. BP checked: 120/68. pt ambulated in the hallway ~ 150 ft using FWW SBA to occasional CGA towards end of ambulation with c/o back pain and getting tired. pt requested to stay up on the chair. positioned on the chair. call light and table placed within reach. pt's girlfriend in room and will come in tomorrow at ~ 10 am for caregiver training. Girlfriend clarified home set up. stated that pt will go to her house initially after d/c and has 2 steps to enter without rails. Girlfriend will bring pt's quad cane tomorrow for stair climbing. Gait Assessment Gait Gait Assistance Required: Standby Assistance,Contact Guard Assist Distance (Feet) 150 Able to Maintain Weight Bearing Status Yes During Gait Assistive Devices Assistive Device Gait Belt,Front Wheeled Walker Orthotic/Prosthetic Devices or Brace: No Gait Deviations General Gait Pattern Decreased Stride Length, Decreased Feet Clearance Factors Limiting Gait Function Factors Limiting Gait Function Decreased Activity Tolerance, Decreased Strength,Limited Range of Motion,Pain,Poor Balance Comments Gait Comments pls refer to mobility section for details M5 PT-IP Objective Assessments Start: 12/26/20 12:07 Freq: NEEDED Status: Active Protocol: Document 12/26/20 09:30 [facility] (Rec: 12/26/20 12:21 AB [id number]) Orientation Orientation/Cognition Level of Alertness Alert Orientation Name,Age,Birthday,Month,Date, Year,Day of Week,Place, Situation Language Function Ability No Deficits Noted Safety Awareness Understands Safety Issues Memory Description No Deficits Noted Gross Range of Motion Lower Extremity ROM Assessment Within Functional Limits Strength Lower Extremity Strength Hip 4-/5 Knee 4-/5 Coordination Assessment Gross Coordination Gross Coordination WNL Sensation Assessment Sensation Gross Sensation WNL Muscle Tone Muscle Tone WNL Yes M6 PT-IP Treatment Start: 12/26/20 12:07 Freq: NEEDED Status: Active Protocol: Document 12/26/20 13:25 [facility] (Rec: 12/26/20 15:03 AB [id number]) Physical Therapy Treatment Education Education Provided Safety M7 PT-IP Assessment and Plan Start: 12/26/20 12:07 Freq: NEEDED Status: Active Protocol: Document 12/26/20 13:25 [facility] (Rec: 12/26/20 15:03 [facility] [id number]) PT Summary Assessment and Plan Potential Rehabilitation Potential Good Summary Impairments Pain,ROM,Strength,Balance, Coordination,Tone,Bed Mobility ,Transfers,Gait,Activity Tolerance Progress Towards Goals Progressing Toward Goals Assessment Summary pt requiring SBA to CGA with mobility using FWW. pt plans to go to his girlfriend's house upon d/c and his GF will be able to assist him. Caregiver training set up at 10 am tomorrow 12/27/20. will continue to assess progress. Goals Bed Mobility Goal Independent Transfer Goal Independent,Front Wheeled Walker Gait Goal Independent,Front Wheel Walker Gait Distance 200 Other Goals up/down 2 platform steps using FWW SBA Days to Meet Goals 5 Frequency of Treatment Frequency Of Treatment Twice a Day Treatment Plan Physical Therapy Treatment Plan Bed Mobility Training,Transfer Training,Gait Training, Therapeutic Exercise,Balance Retraining,Post Op Education, Discharge Planning,Hot or Cold Pack,Neuromuscular Re-ed, Coordination Retraining,Manual Therapy Other Recommendations and Next Treatment caregiver trainin12/27/20 Focus Sun @10am with pt's GF Precautions Lumbar Precautions Log Roll,No Twisting,Limit Bending,Lifting Restriction of 10 lbs,Gait Belt above Incisional Area Recommendations To Nursing Amount of Assist Needed 1 Person Assist Discharge Recommendations PT Discharge Recommendations Home with Assistance Transportation Needs at Discharge Private Vehicle
--- NOTE | 2020-12-26 13:44 | PC.NURSE ---
A&OX4 able to make needs clearly known. RA LSCTA, Hypotensive initially upon activity, IV fluids restarted with NS@100. Parada patent clear gabe UOP. Pt ambulates in parekh PT using FWW & gait belt. Drsg to Lumbar region with shadowing marked, did not extend beyond through shift. C/O minimal pain managed through day shift with Tylenol Q6H and Oxycodone 10 mg X1 in am and Oxycodone 5 mg in afternoon. Pt may have Oxy10 Q3H
--- NOTE | 2020-12-26 16:03 | PC.NURSE ---
Addendum entered by Sigrid Busch R.N. 12/26/20 19:28: Pt returned to bed and positioned for comfort on back with ice to lower back. Requests iv dilaudid as states this allows for restful sleep. BL calf scd's replaced and pt medicated as per request and as per emar. Pt reports desires to sleep and so hs meds given @ this hour. Griggs to gravity with dark yellow urine with some sediment present in tubing. IV fluids continue as per emar as blood pressures have been soft this evening. Pt is, however, able to ambulate in hallway and sit up in chair without any complaints of dizziness this evening. Addendum entered by Sigrid Busch R.N. 12/26/20 18:24: Ambulatory in hallway with [employer] escort and walker. Steady gait. Rates pain 3-4/10. Desires dilaudid iv @ hs and has expressed this desire several times. Stated pt preference is for only 5 mg at a time when taking oxycodone. Original Note: Pt up in recliner awake and alert @ beginning of shift. S.O. is present @ chairside and involved in pt's care. Pt refuses griggs catheter removal until a.m. IV fluids infusing as per emar to left hand iv site d/t episode of hypotension this a.m. Will continue to monitor. Pt denies dizziness or feelings of lightheadedness @ this assessment. Shadowy drainage x 2 outlined to back surgical dressing unchanged. Pt admits to full sensation to BL LE's. Admits to passage of flatus and denies nausea.
[2020-12-26] MEDS: hydrOXYzine pamoate 25 MG CAPSULE PO ×2 (16:20→23:02)
[2020-12-26] MEDS: SENNOSIDES 8.6 MG TABLET 17.2 MG PO (19:04)
[2020-12-27] VITALS: BP 109/52; PULSE 78; RESP 14; TEMP 37.1; O2SAT 95
[2020-12-27 03:35] VITALS: BP 110/41; PULSE 81; RESP 18; TEMP 36.8; O2SAT 94
[2020-12-27] MEDS: SODIUM CHLORIDE 0.9% 1,000 ML 100 ML IV (03:45)
[2020-12-27] MEDS: ACETAMINOPHEN 325 MG TABLET 650 MG PO (03:45)
[2020-12-27 06:36] VITALS: PULSE 80; RESP 16; O2SAT 95
[2020-12-27] MEDS: OXYCODONE IR 5 MG TABLET 10 MG PO ×2 (08:04→11:56)
[2020-12-27 08:45] VITALS: BP 103/53; PULSE 61; RESP 16; TEMP 36.9; O2SAT 91
[2020-12-27] MEDS: DOCUSATE 100 MG CAPSULE PO (09:15)
[2020-12-27] MEDS: ACYCLOVIR 400 MG TABLET PO (09:15)
--- NOTE | 2020-12-27 09:48 | PM.PNPO.1 ---
Subjective Subjective Date Patient Seen: 12/27/20 Time Patient Seen: 09:49 Interval history: Patient is status post spinal surgery doing very well this morning. Patient has been getting up quite well with physical therapy and has very good pain control. Patient is ready to go home today. Exam Vital Signs (past 8 hours): - 12/27/20 03:35 12/27/20 06:36 12/27/20 08:45 Temperature 98.2 F 98.4 F Pulse Rate 81 80 61 Respiratory Rate 18 16 16 Blood Pressure 110/41 L 103/53 L Pulse Oximetry 94 95 91 Oxygen Delivery Method Nasal Cannula Oxygen Flow Rate 0 Narrative Exam Narrative: Patient's dressing is clean and dry. No sign of any strength there. Good range of motion of both the lower and upper extremities. Objective Labs Result Diagrams: 12/26/20 06:20 PFS Medical History BPH (benign prostatic hyperplasia) History of deviated nasal septum (~2013) HLD (hyperlipidemia) Incontinence of feces with fecal urgency Sciatica Urinary urgency Surgical History H/O vasectomy H/O wrist surgery History of ankle surgery History of arthroscopy of both knees History of bilateral cataract extraction History of lumbar spinal fusion (04/22/19) Hx of foot surgery Hx of hernia repair Hx of tonsillectomy Social History household members: none Smoking Status: Former smoker alcohol intake: current Assessment & Plan Post-op Postoperative Procedures: Procedures Operation Date: 12/25/20 07:45 Actual Procedure Side Surgeon p L3-4, L5-S1 TLIF, L4-5 lumbar HWR, exploration of fusion, repeat laminectomy, reinsertion of hardware L3-S1 PSF w. instrumentation Sadaf Anguiano MD Postoperative status narrative: Patient doing very well after lumbar spinal surgery. Patient will be discharged home today. Postoperative plan: discharge Quality VTE Deep Vein Thrombosis/Pulmonary Embolism Present on Admission: No
--- NOTE | 2020-12-27 10:59 | PT.IPTN ---
Current Diagnoses Other spondylosis with radiculopathy, lumbosacral region (12/25/20) Spinal stenosis, lumbar region with neurogenic claudication (12/25/20) Arthrodesis status (12/25/20) Surgery Performed Operation Date: 12/25/20 07:45 Actual Procedures p L3-4, L5-S1 TLIF, L4-5 lumbar HWR, exploration of fusion, repeat laminectomy, reinsertion of hardware L3-S1 PSF w. instrumentation - Sadaf Anguiano MD Physical Therapy Treatment Note M2 PT-IP Current Condition Start: 12/26/20 12:07 Freq: NEEDED Status: Active Protocol: Document 12/26/20 09:30 AB (Rec: 12/26/20 12:21 AB [id number]) Physical Therapy Current Condition Current Condition Evaluation Date 12/26/20 Treatment Diagnosis s/p L3-4, L5S1 fusion; L3-S1 instrumentation; difficulty in walking Onset Date 12/25/20 Precautions Lumbar Precautions Log Roll,No Twisting,Limit Bending,Lifting Restriction of 10 lbs,Gait Belt above Incisional Area M3 PT-IP Subjective Start: 12/26/20 12:07 Freq: NEEDED Status: Active Protocol: Document 12/27/20 10:45 LJ (Rec: 12/27/20 10:59 LJ [id number]) Subjective Physical Therapy Visit Type Type Treatment Note Visit Start Time 10:26 Visit Stop Time 10:45 Total Visit Minutes 19 Number of CROSSING GATEMAN Visits 1 Physical Therapy Visit Comments Patient Comments pt is agreeable to do PT Therapy Pain Assessment Pain When Pain Assessed At Rest Pain Present Pain Present Pain Reported M4 PT-IP Mobility and Gait Start: 12/26/20 12:07 Freq: NEEDED Status: Active Protocol: Document 12/27/20 10:45 LJ (Rec: 12/27/20 10:59 LJ [id number]) PT-Transfer Assessment Sit to and From Stand Sit to and from Stand Standby Assistance,Use of Upper Extremities Equipment Transfer Assistive Device Gait Belt,Front Wheeled Walker Orthotic/Prosthetic Devices or Brace: No Transfers Transfer Destination Chair,Toilet Transfer Technique ambulated using FWW Transfer Ability Level of Assist Standby Assistance,1 Person Assistance,Use of Upper Extremities Comments Mobility Comments Pt sitting in chair upon arrival. Friend/caregiver in room with pt. Pt transfered to from chair and toilet SBA. He ambulated with FWW to stairs and performed stairs x3 using two canes-one quad cane and one SPC. Stair trial was successful and pt able to safely ascend and descend. Slight posterior LOB on bottom stair while standing without stabilizing self with cane. Pt able to correct his balance on his own. Ambulted with FWW in hallway using correct posture and gait pattern. Returned to room to use toilet requiring SBA for transfers. He then ambulated back to chair and sat and positiond self including reclining chair by himself. Gait Assessment Gait Gait Assistance Required: Standby Assistance Distance (Feet) 150 Able to Maintain Weight Bearing Status Yes During Gait Assistive Devices Assistive Device Gait Belt,Front Wheeled Walker Orthotic/Prosthetic Devices or Brace: No Gait Deviations General Gait Pattern Decreased Stride Length, Decreased Feet Clearance Factors Limiting Gait Function Factors Limiting Gait Function Decreased Activity Tolerance, Decreased Strength,Limited Range of Motion,Pain,Poor Balance Comments Gait Comments pls refer to mobility section for details Stair Climbing Assessment Evaluation Level of Assist On Stairs Standby Assistance,Contact Guard Assistance Devices Stair Climbing Assistive Devices Straight Cane,Small Base Quad Cane Technique/Endurance Stair Climbing Direction Ascend and Descend Stair Climbing Technique Step to Step Number of Steps Climbed 3 Stair Climbing Set # Repetitions (reps) 3 Comments Stair Climbing Comments Pt used a SPC and a small based quad cane to go up and down stairs x3. On second descent he stood on bottom step without support and had slight posterior LOB which he corrected himself. Demonstrated he can safely navigate stairs to get into house he is going to after DC M5 PT-IP Objective Assessments Start: 12/26/20 12:07 Freq: NEEDED Status: Active Protocol: Document 12/26/20 09:30 AB (Rec: 12/26/20 12:21 AB [id number]) Orientation Orientation/Cognition Level of Alertness Alert Orientation Name,Age,Birthday,Month,Date, Year,Day of Week,Place, Situation Language Function Ability No Deficits Noted Safety Awareness Understands Safety Issues Memory Description No Deficits Noted Gross Range of Motion Lower Extremity ROM Assessment Within Functional Limits Strength Lower Extremity Strength Hip 4-/5 Knee 4-/5 Coordination Assessment Gross Coordination Gross Coordination WNL Sensation Assessment Sensation Gross Sensation WNL Muscle Tone Muscle Tone WNL Yes M6 PT-IP Treatment Start: 12/26/20 12:07 Freq: NEEDED Status: Active Protocol: Document 12/27/20 10:45 FROILAN (Rec: 12/27/20 10:59 LJ [id number]) Physical Therapy Treatment Education Education Provided Precautions,Safety M7 PT-IP Assessment and Plan Start: 12/26/20 12:07 Freq: NEEDED Status: Active Protocol: Document 12/27/20 10:45 FROILAN (Rec: 12/27/20 10:59 LJ [id number]) PT Summary Assessment and Plan Potential Rehabilitation Potential Good Summary Impairments Pain,ROM,Strength,Balance, Coordination,Tone,Bed Mobility ,Transfers,Gait,Activity Tolerance Progress Towards Goals Safe For Discharge Assessment Summary Pt able to ambulate 150 feet with FWW and SBA. Able to climb stairs suing 2 canes SBA /CGA. He has good gait mechanics with FWW and is safe to DC to his GF home where she can assist him 02/01 until he returns to his own home Goals Bed Mobility Goal Independent Transfer Goal Independent,Front Wheeled Walker Gait Goal Independent,Front Wheel Walker Gait Distance 200 Other Goals up/down 2 platform steps using FWW SBA Days to Meet Goals 5 Frequency of Treatment Frequency Of Treatment Twice a Day Treatment Plan Physical Therapy Treatment Plan Bed Mobility Training,Transfer Training,Gait Training, Therapeutic Exercise,Balance Retraining,Post Op Education, Discharge Planning,Hot or Cold Pack,Neuromuscular Re-ed, Coordination Retraining,Manual Therapy Other Recommendations and Next Treatment caregiver trainin12/27/20 Focus Sun @10am with pt's GF Precautions Lumbar Precautions Log Roll,No Twisting,Limit Bending,Lifting Restriction of 10 lbs,Gait Belt above Incisional Area Recommendations To Nursing Amount of Assist Needed Standby Assistance,1 Person Assist Discharge Recommendations PT Discharge Recommendations Home with Assistance Transportation Needs at Discharge Private Vehicle
[2020-12-27] MEDS: hydrOXYzine pamoate 25 MG CAPSULE PO (11:56)
--- NOTE | 2020-12-27 14:23 | PC.NURSE ---
Pt received sitting up in a chair. A&Ox3. VSS, afebrile on RA. LS CTA. Pt reported pain 7/10 to back this a.m. well controlled with prn pain medications. Dressing to back changed slight shadow/old bloody drainage. Yasmine CDI, no swelling or redness. Pt's girlfriend arrived and care services manager training completed on stairs with OT this a.m. MD clearing patient for discharge. Pt verbalizes understanding of discharge plan, medications, follow up appointments, activity, and worsening of symptoms. RN escorted patient to private vehicle with spouse via w/ch with all belongings and prescriptions.
--- NOTE | 2020-12-27 15:48 | CM.DPC ---
DCP Discharge Home Per Ortho MD, pt is medically stable to d/c home today with no identified barriers to discharge. Per PT, pt's Sig Other participated in CG training and did well and recommendation for home with assist and outpt PT. Per RN, sig other bedside for d/c instructions and no concerns. Plan: patient to d/c home via sig other POV and outpt PT and follow up with Ortho and no further SW needs at this time. Debra Nicolas MSW
== END 2020-12-27 11:50 | disposition home or self-care (01) | DRG 455 ==
PROVIDERS: Admitting Provider Orthopaedic Surgery Orthopaedic Surgery of the Spine; Referring Provider Orthopaedic Surgery Orthopaedic Surgery of the Spine; Visit Provider Orthopaedic Surgery Orthopaedic Surgery of the Spine
PROC: 0SG00AJ Fusion of Lumbar Vertebral Joint with Interbody Fusion Device, Posterior Approach, Anterior Column, Open Approach (ICD-10-PCS; principal; 2020-12-25 07:45)
DX: M48.062 Spinal stenosis, lumbar region with neurogenic claudication (principal); M43.16 Spondylolisthesis, lumbar region; Z98.1 Arthrodesis status; N40.1 Benign prostatic hyperplasia with lower urinary tract symptoms; R39.15 Urgency of urination; E78.5 Hyperlipidemia, unspecified; M48.07 Spinal stenosis, lumbosacral region; M51.36 Other intervertebral disc degeneration, lumbar region; M51.37 Other intervertebral disc degeneration, lumbosacral region; M47.816 Spondylosis without myelopathy or radiculopathy, lumbar region
CPT/HCPCS: 36415; 72100; 72131; 76000; 85014; 85018; 87635; 94762; 97116; 97161; 97165; 97530; 97535; C1776; C9803; C9290; J0330; J0690; J1100; J1170; J2250; J2405; J2704; J3010